=== PATIENT | male | born 1935 | race Caucasian/White ===

== ENCOUNTER 2022-09-06 14:18 | Observation (INO) | payer OTHER, SELFPAY ==
[2022-09-06] VITALS (10 sets, daily range): BP systolic 114–160; BP diastolic 63–119; PULSE 90–106; RESP 14–27; TEMP 37.1–37.5; O2SAT 93–98
--- NOTE | ~2022-09-06 | XR_ITS ---
EXAMINATION: XR chest 2V Exam Date/Time: 09/06/2022 14:52 COMBAT SYSTEMS OPERATOR HISTORY: weakness and cough Comparison: 11/19/2013. RESULT: Lines, tubes, and devices: None. Lungs and pleura: Low lung volumes. Patchy ill-defined airspace disease bilaterally. No large effusi on. Cardiomediastinal silhouette: Stable. Other: No acute osseous or upper abdominal finding. IMPRESSION: Pulmonary opacities may reflect edema or pneumonia. Reviewed, dictated and finalized at location K. AT SYSTEMS OPERATOR
--- NOTE | ~2022-09-06 | US_ITS ---
EXAMINATION: US abdomen limited DATE: 09/07/2022 16:44 INDICATION: Transaminitis TECHNIQUE: Multiple grayscale and Doppler ultrasound images of limited portions of the abdomen were o btained. COMPARISON: 07/15/2005. FINDINGS: The pancreas was obscured by bowel gas. Hyperechoic 1.7 cm right posterior liver lobe lesio n, likely hemangioma. The liver is otherwise normal with normal echogenicity and echotexture. No surf [place] nodularity. Normal hepatopetal flow in the main portal vein. The gallbladder is surgically absent The common bile duct measures 4 mm. There was no sonographic Velazquez sign. IMPRESSION: Pancreas not visualized. Status post cholecystectomy. Otherwise normal abdominal ultrasound findings. Reviewed, dictated and finalized at location K. CORE DEVELOPER IMPRESSION: Pancreas not visualized. Status post cholecystectomy. Otherwise normal abdomina l ultrasound findings.
--- NOTE | ~2022-09-06 | US_ITS ---
EXAMINATION: US venous doppler [facility] DATE: 09/07/2022 16:44 INDICATION: Lower limb swelling TECHNIQUE: Grayscale ultrasound images without and with compression and Doppler ultrasound images of the bilateral lower extremity veins were obtained. COMPARISON: None. FINDINGS: The visualized portions of right common femoral vein, profunda (deep) femoral vein, femoral vein, pop liteal vein, posterior tibial veins, peroneal veins, gastrocnemius vein and greater saphenous vein ou tflow are patent. The visualized portions of left common femoral vein, profunda femoral vein, femoral vein, popliteal v ein, posterior tibial veins, peroneal veins, gastrocnemius vein and greater saphenous vein outflow ar e patent. IMPRESSION: 1. No deep venous thrombosis in either lower limb. Reviewed, dictated and finalized at location A. S OR MIRROR INSPECTOR
--- NOTE | 2022-09-06 14:31 | ECG_ITS ---
Measurements Intervals [place] Rate: 92 P: FL: 0 QRS: -32 QRSD: 98 T: 11 QT: 344 QTc: 426 Interpretive Statements ATRIAL FIBRILLATION BASELINE ARTIFACT LEFT AXIS DEVIATION MINIMAL ST DEPRESSION ABNORMAL ECG NO PREVIOUS ECG AVAILABLE FOR COMPARISON Electronically Signed On 09-06-2022 17:07:14 COFFEE SHOP AIDE by Marcial Long M.D.
--- NOTE | 2022-09-06 14:45 | ED.WEAKNESS ---
HPI - Weakness General Chief complaint: Weakness Stated complaint: weakness/confusion Time Seen by Provider: 09/06/22 14:37 History of Present Illness HPI Narrative: Pt presents with generalized weakness and cough. Pt went to bed at 0300 and could not get out of bed this morning due to feeling too weak. Pt says he laid in bed until someone found him. Pt denies fever or dysuria. Pt denies pain. Pt not aware of history of a fib. Related Data Home Medications Medication Instructions Recorded Confirmed ascorbic acid (vitamin C) 500 mg 500 mg PO DAILY 11/27/19 07/16/22 tablet,extended release flaxseed oil 1,000 mg capsule 1,000 mg PO DAILY 11/27/19 07/16/22 vitamin B complex 1 tablet PO DAILY 11/27/19 07/16/22 zinc 50 mg tablet (Chelated Zinc) 50 mg PO DAILY 11/27/19 07/16/22 coenzyme [id number] E 100 mg-100 cap PO DAILY 06/23/20 07/16/22 unit capsule Allergies Allergy/AdvReac Type Severity Reaction Status Date / Time No Known Allergies Allergy Mild Verified 07/16/22 10:42 Review of Systems Review of Systems: All systems reviewed & are unremarkable except as noted in HPI and below PMFSH Past Medical History Medical History Gonarthrosis Hypertrophy of prostate without urinary obstruction 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 Family History Family History Sibling Patient's brother is in good health Mother Patient's mother is Father Patient's father is Social History Social History (Updated 07/16/22 @ 10:48 by Michelle Mullen MA) Smoking packs per day: 0.5 Smoking cigarettes per day: 10.0 Years smoked: 1.2 Smoking pack-years: 0.60 Smoking status: Former smoker Second hand tobacco smoke exposure: Yes Smoking end date: 01/26/1967 Alcohol intake: never Substance use: never Substance use type: does not use Lack of Transportation: No Lack of Food: Never True Current Housing: I Have Housing Concerned About Future Housing: No Difficulty Paying Gas/Electric Bills: No Difficulty Paying for Meds: No Currently Unemployed: No Education: High School Diploma/GED Difficulty w/ Childcare or Family Care: No Exam Const: General: healthy appearing Nutritional Appearance: well nourished Orientation/consciousness: patient oriented x3 Limitations: no limitations Eyes: EOM: EOMs intact bilaterally Neck: Neck: normal visual inspection and no lymphadenopathy Resp: Effort & Inspection: normal respiratory effort Auscultation: crackles Cardio: Rate: regular rate Rhythm: regular rhythm GI: GI Palp: Yes Soft to palpation and No Tenderness to palpation present (GI) Auscultation: normal bowel sounds Skin: General skin exam: normal color Rashes: no rashes Neuro: General: patient oriented x3, moves all extremities, no meningeal signs and no focal motor deficits Speech: normal speech Extrem: General: normal to inspection and no clubbing, cyanosis or edema Psych: Mental Status: mental status grossly normal Affect: normal affect Attitude: cooperative Course Vital Signs Vital signs: Vital Signs Respiratory Rate 18 09/06/22 14:24 Blood Pressure 155/89 H 09/06/22 14:24 Pulse Oximetry 98 09/06/22 14:24 Pulse Rate 96 09/06/22 17:01 Respiratory Rate 24 H 09/06/22 17:01 Blood Pressure 160/81 H 09/06/22 17:01 Pulse Oximetry 96 09/06/22 17:01 Oxygen Delivery Room Air 09/06/22 15:30 MDM - Weakness MDM Narrative Medical decision making narrative: pt generally weak and unable to get out of bed, will work up for cardiac and sepsis as well as swab for flu/covid. Pt in new onset a fib and has influenza a, given his profound weakness will need to admit. d/w pernell huddleston agrees to admit Lab Data 09/06/22 15:04 09/06/22 15:04 Labs: Lab Results 09/06/2209/06
[2022-09-06 15:14] LABS: Basophils Percent Auto 0.1 % (0.2-1.2); Hematocrit 41.3 % (42.0-52.0); Hemoglobin 14.2 g/dL (14.0-18.0); Immature Granulocyte Absolute 0.05 K/mm3 (0.00-0.031); Immature Granulocyte Percent A 0.5 % (0-0.5); Lymphocytes Absolute Auto 1.01 K/mm3 (0.9-3.2); Lymphocytes Percent Auto 9.9 % (18.3-44.2); Mean Corpuscular HGB Conc 34.4 g/dl (32-36); Mean Corpuscular Hemoglobin 34.6 pg (26-34); Mean Corpuscular Volume 100.7 fl (80-100); Mean Platelet Volume 10.8 fl (7.4-10.4); Monocytes Absolute Auto 1.4 K/mm3 (0.1-0.6); Monocytes Percent Auto 14.1 % (2.6-8.5); Neutrophils Absolute Auto 7.7 K/mm3 (1.3-6.7); Neutrophils Percent Auto 75.4 % (45.5-73.1); Platelet Count Result 160 k/mm3 (150-375); Red Cell Distribution Width 13.6 % (11.5-14.5); White Blood Count 10.2 K/mm3 (4.5-10.0)
--- NOTE | 2022-09-06 15:29 | PC.NURSE ---
Vincent Blackburn for contact: [phone]
[2022-09-06 15:50] LABS: Influenza A QL RT-PCR Positive (Negative); Influenza B QL RT-PCR Negative (Negative); SARS-CoV-2 RNA PCR Negative
[2022-09-06 16:51] LABS: Appearance Urine Slightly Cloudy (Clear); Bilirubin Urine Negative (Negative); Blood Urine 2+ (Negative); Glucose Urine UA Negative (Negative); Ketones Urine 1+ mg/dL (Negative); Leukocyte Esterase Ur Negative LEU/UL (Negative); Nitrate Urine Negative (Negative); Protein Urine 2+ mg/dL (Negative); Specific Grav Ur 1.025 (1.001-1.035); Urobilinogen Urine 0.2 mg/dL (<2.0)
[2022-09-06 16:56] LABS: Add Urine Microscopic? YES; Color Urine Yellow (Yellow)
[2022-09-06 17:01] LABS: Mucus Urine Rare /lpf; Squamous Epithelial Cell Urine Rare /hpf (Few); WBC Urine 0-3 /hpf
[2022-09-06 17:04] LABS: Alanine Aminotransferase 52 U/L (6-50); Albumin Level 3.9 g/dL (3.5-5.1); Alkaline Phosphatase 66 U/L (38-126); Anion Gap 8 mmol/L (8-16); Aspartate Amino Transferase 176 U/L (17-59); Bilirubin,Total 0.7 mg/dL (0.2-1.3); Blood Urea Nitrogen 34 mg/dL (9-20); Calcium 8.6 mg/dL (8.4-10.2); Carbon Dioxide 27 mmol/L (22-30); Chloride 105 mmol/L (98-107); Estimated CRCL calculation 38 ml/min; Estimated Glomerular Filt Rate 57; Glucose 121 mg/dL (65-110); Potassium 4.1 mmol/L (3.4-5.0); Sodium 140 mmol/L (137-145)
--- NOTE | 2022-09-06 18:45 | PM.IMHP ---
H&P: HPI History of Present Illness Date/Time: 09/06/22 18:45 Chief Complaint: Weakness. Narrative: This is a pleasant 86-year-old male with hypertension, hypothyroidism, bipolar disorder, and benign prostatic hyperplasia who presented to the emergency department via EMS from home for evaluation of weakness. He says he felt just fine yesterday and had [employer] for dinner. As the evening progressed he started to feel very weak and at about 03:00 ?I felt like something shut my body down.? He finally fell asleep however when he tried to get out of bed this afternoon he was unable to do so due to profound weakness. With further questioning he endorses generalized myalgias and arthralgias, subjective fever, chills, and nonproductive cough. He lives alone he has no known sick contacts. He denies fever, headache, neck ache, sore throat, chest and pleuritic pain, palpitations, vomiting, diarrhea, and dysuria. He also denies focal weakness, paresthesias, difficulties speaking and swallowing, facial droop, auditory visual changes, and vertigo. He tested positive for influenza A in the ED and chest x-ray showed pulmonary opacities which may reflect edema or pneumonia. His vital signs have been stable though he is in atrial fibrillation which is a new diagnosis for the patient (he has no symptoms of such). He is being admitted in this setting for supportive care. Review of Systems Review of Systems: Twelve systems were reviewed and are negative except for as per HPI. [facility] Past Medical History Medical History (Updated 09/06/22 @ 23:11 by Itzel Matthews PA-C) Arthritis Benign prostatic hyperplasia Bipolar disorder Depression Hypothyroidism Obstructive sleep apnea Surgical History Surgical History (Updated 09/06/22 @ 23:04 by Itzel Matthews PA-C) History of cataract extraction with lens replacement History of cholecystectomy Status post transposition of nerve Family History Family History Sibling Patient's brother is in good health Mother Patient's mother is Father Patient's father is Social History Social History (Updated 09/06/22 @ 23:05 by Itzel Matthews PA-C) Social History: Surrogate medical decision maker: Bere Cornejoda, daughter. Code status: Full code. Smoking packs per day: 0.5 Smoking cigarettes per day: 10.0 Years smoked: 1.2 Smoking pack-years: 0.60 Smoking status: Never smoker Second hand tobacco smoke exposure: Yes Smoking end date: 01/26/1967 Alcohol intake: never Substance use: never Substance use type: does not use Lack of Transportation: No Lack of Food: Never True Current Housing: I Have Housing Concerned About Future Housing: No Difficulty Paying Gas/Electric Bills: No Difficulty Paying for Meds: No Currently Unemployed: No Education: High School Diploma/GED Difficulty w/ Childcare or Family Care: No Additional living arrangements comments: The patient lives in his own home in [place]. Additional occupation/education comments: Retired. Spiritual care concerns: No Meds Home Medications and Allergies Home Medications Medication Instructions Recorded Confirmed Type ascorbic acid (vitamin C) 500 mg 500 mg PO DAILY 11/27/19 09/06/22 History tablet,extended release flaxseed oil 1,000 mg capsule 1,000 mg PO DAILY 11/27/19 09/06/22 History vitamin B complex 1 tablet PO DAILY 11/27/19 09/06/22 History zinc 50 mg tablet (Chelated Zinc) 50 mg PO DAILY 11/27/19 09/06/22 History coenzyme [id number] E 100 mg-100 1 cap PO DAILY 06/23/20 09/06/22 History unit capsule Synthroid 100 mcg tablet 100 mcg PO DAILY #90 tabs 07/06/22 09/06/22 Rx (levothyroxine) Depakote 500 mg tablet,delayed 500 mg PO BID #180 tabs 07/16/22 09/06/22 Rx release (divalproex) doxazosin 1 mg tablet 1 mg PO DAILY #90 tabs 07/16/22 09/06/22 Rx Allergies [place]
--- NOTE | 2022-09-06 20:27 | ADMGEN ---
This patient, Alberto Pérez, was admitted to Medical Room 255-01. Patient/family oriented to hospital policies and general routines including ID bracelet, bed and alarms, visiting hours, pain management, procedures, bathroom and other care routines, personal items, smoking policy, room service/diet, and visiting hours. Information on how to activate the Rapid Response Team has been discussed. Patient/Family are encouraged to report perceived risks to care and to ask questions if they do not understand what they are told or what they should do.
[2022-09-06] MEDS: guaiFENesin 12 HR 600 MG TABCR PO (23:46)
[2022-09-06] MEDS: FUROSEMIDE INJ 40 MG/4 ML VIAL 20 MG IV PUSH (23:47)
[2022-09-06] MEDS: OSELTAMIVIR PHOSPHATE ORAL SUSP 30 MG/5 ML SYRINGE PO (23:48)
[2022-09-06] MEDS: ENOXAPARIN 100 MG/ML SYRINGE 86 MG SUB-Q (23:48)
[2022-09-07] VITALS (9 sets, daily range): BP systolic 140–148; BP diastolic 57–85; PULSE 86–115; RESP 16–24; TEMP 36.1–36.3; O2SAT 93–97
--- NOTE | 2022-09-07 06:02 | PCRCNOTE ---
Patient refused use of hospital cpap stating he does not use one at home. Patient seemed slightly confused. [place] ordered later, RT to instruct pt, pt was sleeping. Day shift RT to instruct.
[2022-09-07 06:03] LABS: Hematocrit 38.3 % (42.0-52.0); Hemoglobin 12.8 g/dL (14.0-18.0); Mean Corpuscular HGB Conc 33.4 g/dl (32-36); Mean Corpuscular Hemoglobin 33.4 pg (26-34); Mean Platelet Volume 10.8 fl (7.4-10.4); Platelet Count Result 161 k/mm3 (150-375); Red Blood Count 3.83 M/mm3 (4.6-6.20); Red Cell Distribution Width 13.8 % (11.5-14.5); White Blood Count 14.4 K/mm3 (4.5-10.0)
[2022-09-07] MEDS: LEVOTHYROXINE SODIUM 100 MCG TABLET PO (06:10)
[2022-09-07 06:21] LABS: Alanine Aminotransferase 66 U/L (6-50); Albumin Level 3.5 g/dL (3.5-5.1); Alkaline Phosphatase 54 U/L (38-126); Anion Gap 5 mmol/L (8-16); Aspartate Amino Transferase 210 U/L (17-59); Bilirubin,Total 0.5 mg/dL (0.2-1.3); Blood Urea Nitrogen 34 mg/dL (9-20); Calcium 7.9 mg/dL (8.4-10.2); Carbon Dioxide 29 mmol/L (22-30); Chloride 99 mmol/L (98-107); Estimated CRCL calculation 41 ml/min; Estimated Glomerular Filt Rate > 60; Glucose 125 mg/dL (65-110); Potassium 3.8 mmol/L (3.4-5.0); Sodium 133 mmol/L (137-145)
[2022-09-07 06:57] LABS: Hepatitis B Surface Antigen Negative (Negative)
[2022-09-07 07:02] LABS: HAV RESULT Negative (Negative); Hepatitis B Core IgM Result Negative (Negative)
[2022-09-07 07:14] LABS: Hepatitis C Virus Antibody Negative (Negative)
[2022-09-07 07:32] LABS: CRP 18.7 mg/dL (<1.0)
--- NOTE | 2022-09-07 07:34 | P.PNIM_ITS ---
Progress Note: A&P Assessment and Plan (1) Influenza A: Code(s): J10.1 - Influenza due to other identified influenza virus with other respiratory manifestations Status: Acute Assessment and Plan: Patient presents to the ED on 09/06/22 due to increased weakness. Patient found to be influenza positive in the ED. * Supportive care. * He has been started on Tamiflu for total of 5 days * Fall precautions * Patient not requiring any oxygen supplementation. O2 saturation 98 on room air. (2) Generalized weakness: Code(s): R53.1 - Weakness Status: Acute Assessment and Plan: Presents to the ED with generalized weakness. * Related to above. * Initiate fall precautions. * PT/OT consulted. * TSH within normal limits * CRP 18.7, continue to trend * Urine negative for wbc's, leukocyte Estrace, and nitrates * B12 and folate pending * Vitamin-D pending (3) New onset atrial fibrillation: Code(s): I48.91 - Unspecified atrial fibrillation Status: Acute Assessment and Plan: Patient found to have AFib in the ED * Patient is asymptomatic and has no known history of AFib. * Check TSH and echocardiogram. * Lovenox 1 milligram/kilogram bid. * Echocardiogram ordered * Telemetry (4) Pulmonary infiltrates: Code(s): R91.8 - Other nonspecific abnormal finding of lung field Status: Acute Assessment and Plan: Chest x-ray revealed pulmonary opacities that may reflect edema or pneumonia * Empiric azithromycin and ceftriaxone for possible bacterial pneumonia. * Sputum culture collected. * Check urinary antigens. * Procalcitonin ordered (5) Transaminitis: Code(s): R74.01 - Elevation of levels of liver transaminase levels Status: Acute Assessment and Plan: Abnormal finding on labs * Hepatitis panel negative * Right upper quadrant ultrasound pending * Patient is on Depakote which could be contributing to LFT elevation (6) Hypothyroidism: Code(s): E03.9 - Hypothyroidism, unspecified Status: Chronic Assessment and Plan: Chronic * TSH within normal limits (7) Bipolar disorder: Code(s): F31.9 - Bipolar disorder, unspecified Status: Chronic Assessment and Plan: Chronic * Continue Depakote. (8) Benign prostatic hyperplasia: Code(s): N40.0 - Benign prostatic hyperplasia without lower urinary tract symptoms Status: Chronic Assessment and Plan: Chronic * Continue doxazosin. P.r.n. bladder scan to rule out urinary retention. (9) Obstructive sleep apnea: Code(s): G47.33 - Obstructive sleep apnea (adult) (pediatric) Status: Chronic Assessment and Plan: Chronic * CPAP will be provided for the patient to use while hospitalized. Time Spent With Patient Time with patient: Greater than 35 minutes Subjective Date/time seen: 09/07/22 07:34 Interval history: 86-year-old male with history of hypertension, hypothyroidism, bipolar disorder and BPH presented to the ED on 09/06/2022 with chief complaint of weakness. Patient was found be influenza A positive. Patient states that weakness started on the day of ED arrival and also has symptoms of cough and congestion. Patient denies chest pain, shortness a breath, nausea, vomiting, fever and lower extremity swelling. Patient does have auditory coarse breath sounds when being interviewed. Review of Systems Review of Systems:
--- NOTE | 2022-09-07 07:34 | PM.IMPN ---
Progress Note: A&P Assessment and Plan (1) Influenza A: Code(s): J10.1 - Influenza due to other identified influenza virus with other respiratory manifestations Status: Acute Assessment and Plan: Patient presents to the ED on 09/06/22 due to increased weakness. Patient found to be influenza positive in the ED. Supportive care. He has been started on Tamiflu for total of 5 days Fall precautions Patient not requiring any oxygen supplementation. O2 saturation 98 on room air. (2) Generalized weakness: Code(s): R53.1 - Weakness Status: Acute Assessment and Plan: Presents to the ED with generalized weakness. Related to above. Initiate fall precautions. PT/OT consulted. TSH within normal limits CRP 18.7, continue to trend Urine negative for wbc's, leukocyte Estrace, and nitrates B12 and folate pending Vitamin-D pending (3) New onset atrial fibrillation: Code(s): I48.91 - Unspecified atrial fibrillation Status: Acute Assessment and Plan: Patient found to have AFib in the ED Patient is asymptomatic and has no known history of AFib. Check TSH and echocardiogram. Lovenox 1 milligram/kilogram bid. Echocardiogram ordered Telemetry (4) Pulmonary infiltrates: Code(s): R91.8 - Other nonspecific abnormal finding of lung field Status: Acute Assessment and Plan: Chest x-ray revealed pulmonary opacities that may reflect edema or pneumonia Empiric azithromycin and ceftriaxone for possible bacterial pneumonia. Sputum culture collected. Check urinary antigens. Procalcitonin ordered (5) Transaminitis: Code(s): R74.01 - Elevation of levels of liver transaminase levels Status: Acute Assessment and Plan: Abnormal finding on labs Hepatitis panel negative Right upper quadrant ultrasound pending Patient is on Depakote which could be contributing to LFT elevation (6) Hypothyroidism: Code(s): E03.9 - Hypothyroidism, unspecified Status: Chronic Assessment and Plan: Chronic TSH within normal limits (7) Bipolar disorder: Code(s): F31.9 - Bipolar disorder, unspecified Status: Chronic Assessment and Plan: Chronic Continue Depakote. (8) Benign prostatic hyperplasia: Code(s): N40.0 - Benign prostatic hyperplasia without lower urinary tract symptoms Status: Chronic Assessment and Plan: Chronic Continue doxazosin. P.r.n. bladder scan to rule out urinary retention. (9) Obstructive sleep apnea: Code(s): G47.33 - Obstructive sleep apnea (adult) (pediatric) Status: Chronic Assessment and Plan: Chronic CPAP will be provided for the patient to use while hospitalized. Time Spent With Patient Time with patient: Greater than 35 minutes Subjective Date/time seen: 09/07/22 07:34 Interval history: 86-year-old male with history of hypertension, hypothyroidism, bipolar disorder and BPH presented to the ED on 09/06/2022 with chief complaint of weakness. Patient was found be influenza A positive. Patient states that weakness started on the day of ED arrival and also has symptoms of cough and congestion. Patient denies chest pain, shortness a breath, nausea, vomiting, fever and lower extremity swelling. Patient does have auditory coarse breath sounds when being interviewed. Review of Systems Review of Systems: All systems reviewed & are unremarkable except as noted in HPI and below Exam Narrative: GENERAL: Comfortable, no acute distress HENMT: moist mucous membranes EYES: EOM intact b/l NECK: no lymphadenopathy RESPIRATORY: Mild coarse breath sounds; I believe that most of the harsh breathing noises the patient is making is due to lack of mucus clearing in the upper airways. CARDIO: Irregular rhythm, consistent with new atrial fibrillation diagnosis GI: soft, nontender, bowel sounds present SKIN: no rashes
[2022-09-07 08:20] LABS: Procalcitonin 0.9 ng/mL
[2022-09-07 08:22] LABS: Vitamin D 25 Hydroxy 48.3 ng/mL
[2022-09-07] MEDS: ZINC SULFATE 220 MG CAPSULE PO (08:48)
[2022-09-07] MEDS: VITAMIN B COMPLEX CAPSULE 1 CAP PO (08:49)
[2022-09-07] MEDS: DIVALPROEX SODIUM DR 250 MG TABEC 500 MG PO ×2 (08:49→16:11)
[2022-09-07] MEDS: DOXAZOSIN MESYLATE 1 MG TABLET PO (08:49)
[2022-09-07] MEDS: guaiFENesin 12 HR 600 MG TABCR PO ×2 (08:49→20:26)
[2022-09-07] MEDS: ASCORBIC ACID 500 MG TABLET PO (08:49)
[2022-09-07] MEDS: ENOXAPARIN 100 MG/ML SYRINGE 86 MG SUB-Q ×2 (08:49→20:26)
[2022-09-07] MEDS: OSELTAMIVIR PHOSPHATE ORAL SUSP 30 MG/5 ML SYRINGE PO ×2 (08:51→20:26)
[2022-09-07 09:10] LABS: Folic Acid > 20.0 ng/mL (2.76->20); Vitamin B12 > 1000.0 pg/mL (239-931)
[2022-09-07] MEDS: PERFLUTREN LIPID MICROSPHERES 1.5 ML VIAL DILUTED TO 10 ML TOTAL VOLUME IV PUSH (16:56)
--- NOTE | 2022-09-07 16:57 | IVDEFINITY ---
Prior to administration of IV Definity the patient was educated on the risks and benefits of the imaging enhancing agent including potential adverse side effects. The patient verbalized understanding. Allergies were verified. No exclusion criteria were identified and at least one of the following inclusion criteria were met: 1) physician request, 2) patient technically difficult to image (per the [place] [employer] Echocardiography guidelines of two or more segments not discernable within the apical view), or 3) questionable left ventricular function. ?
--- NOTE | 2022-09-07 23:12 | ECHO_ITS ---
Patient Info Name: Alberto Pérez Age: 86 years : 1935 Gender: Male Ht: 68 in Wt: 190 lbs BSA: 2.05 m2 HR: 97 bpm BP: 147 / 79 mmHg Heart Rhythm: Atrial Fibrillation Technical Quality: Fair Exam Date: 09/07/2022 4:24 PM Exam Location: [facility] Patient Status: Outpatient Admit Date: 09/06/2022 Staff Ordering Physician: Itzel Matthews PA-C Vice President Business Development: Madison Morales RDCS Attending Provider: Kobe Reeves MD Referring Physician: Byron ARCINIEGA; Exam Type: CA echo dop color flow w con Study Info Indications - new onset afib Complete two-dimensional, color flow and Doppler transthoracic echocardiogram is performed with contrast to opacify the left ventricle and to improve the deliniation of the left ventricle endocardial borders. Contrast/Agitated Saline Contrast/Ag. Saline: Definity Amount: 3.00 ml Administered By: Madison Morales RDCS Existing IV Access: Yes IV Access Condition: patent with no signs of infiltration Summary 1. Left ventricular chamber dimension is normal. 2. Left ventricular systolic function is hyperdynamic, estimated at >70%. 3. There is mildly increased left ventricular wall thickness. 4. The left ventricular diastolic function is indeterminate. 5. Right ventricular chamber dimension is moderately enlarged. 6. Right ventricular systolic function is mildly reduced. TAPSE 1.6. 7. Right atrial chamber dimension is moderate to severely enlarged. 8. There is trace mitral valve regurgitation. 9. There is mild tricuspid valve regurgitation. 10. Moderate pulmonary hypertension, estimated pulmonary arterial systolic pressure is 46 mmHg. Left Ventricle Left ventricular chamber dimension is normal. Left ventricular systolic function is hyperdynamic, estimated at >70%. There is mildly increased left ventricular wall thickness. The left ventricular diastolic function is indeterminate. Right Ventricle Right ventricular chamber dimension is moderately enlarged. Right ventricular systolic function is mildly reduced. TAPSE 1.6. Left Atria Left atrial chamber dimension is mildly enlarged. Right Atria Right atrial chamber dimension is moderate to severely enlarged. Aortic Valve The aortic valve is trileaflet. There is mild aortic valve sclerosis. There is no aortic valve stenosis. There is no aortic valve regurgitation. Pulmonic Valve The pulmonic valve is not well visualized. Mitral Valve The mitral valve has normal leaflets. There is trace mitral valve regurgitation. The mitral valve annulus is mildly calcified. Tricuspid Valve The tricuspid valve leaflets are normal. There is mild tricuspid valve regurgitation. Moderate pulmonary hypertension, estimated pulmonary arterial systolic pressure is 46 mmHg. Pericardium/Pleural The pericardium appears normal. There is small pericardial effusion. Inferior Vena Cava Normal inferior vena cava with >50% collapse upon inspiration consistent with normal right atrial pressure, 5 mmHg. Aorta The aortic root size at the sinus of Valsalva is normal. Left Ventricular Outflow Tract Name Value Normal LVOT 2D LVOT Diameter 2.0
[2022-09-08] VITALS (9 sets, daily range): BP systolic 131–139; BP diastolic 65–68; PULSE 84–109; RESP 18–20; TEMP 36.2–36.9; O2SAT 94–98
[2022-09-08] MEDS: LEVOTHYROXINE SODIUM 100 MCG TABLET PO (05:55)
[2022-09-08 05:56] LABS: Hematocrit 36.6 % (42.0-52.0); Hemoglobin 12.5 g/dL (14.0-18.0); Mean Corpuscular HGB Conc 34.2 g/dl (32-36); Mean Corpuscular Hemoglobin 33.6 pg (26-34); Mean Corpuscular Volume 98.4 fl (80-100); Mean Platelet Volume 10.5 fl (7.4-10.4); Platelet Count Result 162 k/mm3 (150-375); Red Blood Count 3.72 M/mm3 (4.6-6.20); Red Cell Distribution Width 13.6 % (11.5-14.5)
[2022-09-08 06:32] LABS: Alanine Aminotransferase 89 U/L (6-50); Albumin Level 3.3 g/dL (3.5-5.1); Alkaline Phosphatase 55 U/L (38-126); Anion Gap 3 mmol/L (8-16); Aspartate Amino Transferase 215 U/L (17-59); Bilirubin,Total 0.4 mg/dL (0.2-1.3); Blood Urea Nitrogen 29 mg/dL (9-20); CRP 15.3 mg/dL (<1.0); Carbon Dioxide 31 mmol/L (22-30); Chloride 100 mmol/L (98-107); Estimated CRCL calculation 60 ml/min; Estimated Glomerular Filt Rate > 60; Glucose 87 mg/dL (65-110); Potassium 3.6 mmol/L (3.4-5.0); Sodium 134 mmol/L (137-145)
[2022-09-08] MEDS: OSELTAMIVIR PHOSPHATE ORAL SUSP 30 MG/5 ML SYRINGE PO (08:50)
[2022-09-08] MEDS: ENOXAPARIN 100 MG/ML SYRINGE 86 MG SUB-Q ×2 (08:50→20:27)
[2022-09-08] MEDS: ZINC SULFATE 220 MG CAPSULE PO (08:51)
[2022-09-08] MEDS: guaiFENesin 12 HR 600 MG TABCR PO ×2 (08:51→20:27)
[2022-09-08] MEDS: VITAMIN B COMPLEX CAPSULE 1 CAP PO (08:51)
[2022-09-08] MEDS: DOXAZOSIN MESYLATE 1 MG TABLET PO (08:51)
[2022-09-08] MEDS: DIVALPROEX SODIUM DR 250 MG TABEC 500 MG PO ×2 (08:51→16:46)
[2022-09-08] MEDS: ASCORBIC ACID 500 MG TABLET PO (08:51)
--- NOTE | 2022-09-08 16:29 | P.PNIM_ITS ---
Progress Note: A&P Assessment and Plan (1) Influenza A: Code(s): J10.1 - Influenza due to other identified influenza virus with other respiratory manifestations Status: Acute Assessment and Plan: Patient presents to the ED on 09/06/22 due to increased weakness. Patient found to be influenza positive in the ED. * Continue supportive care. * Continue Tamiflu x5 days started 09/06/22, day 3 of 5 * Fall precautions * Patient not requiring any oxygen supplementation. O2 saturation stable on room air. (2) Generalized weakness: Code(s): R53.1 - Weakness Status: Acute Assessment and Plan: Presents to the ED with generalized weakness. * Secondary to influenza. * Continue fall precautions. * PT/OT consulted. * TSH within normal limits * CRP 18.7, continue to trend * Urine negative for wbc's, leukocyte Estrace, and nitrates * B12 and folate within normal limits * Vitamin-D within normal limits. (3) Pneumonia: Code(s): J18.9 - Pneumonia, unspecified organism Status: Acute Assessment and Plan: Chest x-ray revealed pulmonary opacities that may reflect edema or pneumonia. Patient reports sputum color and consistency changes. * continue empiric azithromycin and ceftriaxone, started 09/06, antibiotic day 3, transition to oral antibiotics in am if still afebrile. * Sputum culture ordered, but uncollected at this time. .? * Legionella and pneumococcal urine antigen ordered. mycoplasma antibody titer pending.? * Procalcitonin 0.9 suggestive of bacterial infection. (4) New onset atrial fibrillation: Code(s): I48.91 - Unspecified atrial fibrillation Status: Acute Assessment and Plan: Patient found to have AFib in the ED, rate controlled * Patient is asymptomatic and has no known history of AFib. * TSH within normal limits * echocardiogram - with enlarged RA/RV and mildly reduced RV systolic function, moderate pulmonary hypertension * Continue lovenox 1 mg/kg per renal function. * Discussed with the patient and daughter regarding anticoagulation risks and benefits. * [id number] score 4 high risk stroke; HAS-BLED score 1 low risk major bleeding * Monitor telemetry (5) Transaminitis: Code(s): R74.01 - Elevation of levels of liver transaminase levels Status: Acute Assessment and Plan: Abnormal finding on labs * Hepatitis panel negative * Right upper quadrant ultrasound with normal liver * Patient is on Depakote which could be contributing to LFT elevation * Elevated LFTs likely secondary to acute vial disease. * Trend LFTs. (6) Hypothyroidism: Qualifiers: Hypothyroidism type: acquired Qualified Code(s): E03.9 - Hypothyroidism, unspecified Code(s): E03.9 - Hypothyroidism, unspecified Status: Chronic Assessment and Plan: Chronic * TSH within normal limits * continue levothyroxine at home dose (7) Bipolar disorder: Qualifiers: Active/Remission status: remission status unspecified Qualified Code(s): F31.9 - Bipolar disorder, unspecified Code(s): F31.9 - Bipolar disorder, unspecified Status: Chronic Assessment and Plan: Chronic, stable. * Continue Depakote. (8) Benign prostatic hyperplasia: Qualifiers: Lower urinary tract symptom presence: symptoms absent Qualified Code(s): N40.0 - Benign prostatic hyperplasia without lower urinary tract symptoms Code(s): N40.0 - Benign prostatic hyperplasia without lower urinary tract sympto
--- NOTE | 2022-09-08 16:29 | PM.IMPN ---
Progress Note: A&P Assessment and Plan (1) Influenza A: Code(s): J10.1 - Influenza due to other identified influenza virus with other respiratory manifestations Status: Acute Assessment and Plan: Patient presents to the ED on 09/06/22 due to increased weakness. Patient found to be influenza positive in the ED. Continue supportive care. Continue Tamiflu x5 days started 09/06/22, day 3 of 5 Fall precautions Patient not requiring any oxygen supplementation. O2 saturation stable on room air. (2) Generalized weakness: Code(s): R53.1 - Weakness Status: Acute Assessment and Plan: Presents to the ED with generalized weakness. Secondary to influenza. Continue fall precautions. PT/OT consulted. TSH within normal limits CRP 18.7, continue to trend Urine negative for wbc's, leukocyte Estrace, and nitrates B12 and folate within normal limits Vitamin-D within normal limits. (3) Pneumonia: Code(s): J18.9 - Pneumonia, unspecified organism Status: Acute Assessment and Plan: Chest x-ray revealed pulmonary opacities that may reflect edema or pneumonia. Patient reports sputum color and consistency changes. continue empiric azithromycin and ceftriaxone, started 09/06, antibiotic day 3, transition to oral antibiotics in am if still afebrile. Sputum culture ordered, but uncollected at this time. .? Legionella and pneumococcal urine antigen ordered. mycoplasma antibody titer pending.? Procalcitonin 0.9 suggestive of bacterial infection. (4) New onset atrial fibrillation: Code(s): I48.91 - Unspecified atrial fibrillation Status: Acute Assessment and Plan: Patient found to have AFib in the ED, rate controlled Patient is asymptomatic and has no known history of AFib. TSH within normal limits echocardiogram - with enlarged RA/RV and mildly reduced RV systolic function, moderate pulmonary hypertension Continue lovenox 1 mg/kg per renal function. Discussed with the patient and daughter regarding anticoagulation risks and benefits. [id number] score 4 high risk stroke; HAS-BLED score 1 low risk major bleeding Monitor telemetry (5) Transaminitis: Code(s): R74.01 - Elevation of levels of liver transaminase levels Status: Acute Assessment and Plan: Abnormal finding on labs Hepatitis panel negative Right upper quadrant ultrasound with normal liver Patient is on Depakote which could be contributing to LFT elevation Elevated LFTs likely secondary to acute vial disease. Trend LFTs. (6) Hypothyroidism: Qualifiers: Hypothyroidism type: acquired Qualified Code(s): E03.9 - Hypothyroidism, unspecified Code(s): E03.9 - Hypothyroidism, unspecified Status: Chronic Assessment and Plan: Chronic TSH within normal limits continue levothyroxine at home dose (7) Bipolar disorder: Qualifiers: Active/Remission status: remission status unspecified Qualified Code(s): F31.9 - Bipolar disorder, unspecified Code(s): F31.9 - Bipolar disorder, unspecified Status: Chronic Assessment and Plan: Chronic, stable. Continue Depakote. (8) Benign prostatic hyperplasia: Qualifiers: Lower urinary tract symptom presence: symptoms absent Qualified Code(s): N40.0 - Benign prostatic hyperplasia without lower urinary tract symptoms Code(s): N40.0 - Benign prostatic hyperplasia without lower urinary tract symptoms Status: Chronic Assessment and Plan: Chronic Continue doxazosin. P.r.n. bladder scan if lower urinary symptoms. (9) Obstructive sleep apnea: Code(s): G47.33 - Obstructive sleep apnea (adult) (pediatric) Status: Chronic Assessment and Plan: Chronic CPAP while hospitalized. Time Spent With Patient Time: All patient and family questions answered to the best of my ability Time with patient: 15 - 25 mi
[2022-09-08] MEDS: OSELTAMIVIR PHOSPHATE 30 MG CAPSULE PO (20:27)
[2022-09-09] VITALS: PULSE 96
[2022-09-09 04:00] VITALS: PULSE 92
[2022-09-09 05:55] LABS: Basophils Percent Auto 0.3 % (0.2-1.2); Eosinophils Percent Auto 0.1 % (0-4.4); Hematocrit 37.2 % (42.0-52.0); Hemoglobin 12.6 g/dL (14.0-18.0); Immature Granulocyte Absolute 0.07 K/mm3 (0.00-0.031); Lymphocytes Absolute Auto 2.58 K/mm3 (0.9-3.2); Lymphocytes Percent Auto 35.5 % (18.3-44.2); Mean Corpuscular HGB Conc 33.9 g/dl (32-36); Mean Corpuscular Hemoglobin 34.6 pg (26-34); Mean Corpuscular Volume 102.2 fl (80-100); Mean Platelet Volume 10.5 fl (7.4-10.4); Monocytes Absolute Auto 0.4 K/mm3 (0.1-0.6); Monocytes Percent Auto 5.2 % (2.6-8.5); Neutrophils Absolute Auto 4.2 K/mm3 (1.3-6.7); Neutrophils Percent Auto 57.9 % (45.5-73.1); Platelet Count Result 181 k/mm3 (150-375); Red Blood Count 3.64 M/mm3 (4.6-6.20); Red Cell Distribution Width 13.5 % (11.5-14.5); White Blood Count 7.3 K/mm3 (4.5-10.0)
[2022-09-09 06:00] VITALS: BP 115/74; PULSE 96; RESP 18; TEMP 36.6; O2SAT 96
[2022-09-09] MEDS: LEVOTHYROXINE SODIUM 100 MCG TABLET PO (06:02)
[2022-09-09 06:07] LABS: Alanine Aminotransferase 94 U/L (6-50); Albumin Level 3.2 g/dL (3.5-5.1); Alkaline Phosphatase 53 U/L (38-126); Anion Gap 4 mmol/L (8-16); Aspartate Amino Transferase 168 U/L (17-59); Bilirubin,Total 0.4 mg/dL (0.2-1.3); Blood Urea Nitrogen 24 mg/dL (9-20); Calcium 8.2 mg/dL (8.4-10.2); Carbon Dioxide 33 mmol/L (22-30); Chloride 104 mmol/L (98-107); Estimated CRCL calculation 54 ml/min; Estimated Glomerular Filt Rate > 60; Glucose 90 mg/dL (65-110); Sodium 141 mmol/L (137-145)
[2022-09-09 07:36] LABS: Atypical Lymphocytes Present; Platelet Estimate Adequate (Adequate); Schistocytes None Seen (NORMAL)
[2022-09-09] MEDS: DIVALPROEX SODIUM DR 250 MG TABEC 500 MG PO (08:21)
[2022-09-09] MEDS: VITAMIN B COMPLEX CAPSULE 1 CAP PO (08:22)
[2022-09-09] MEDS: guaiFENesin 12 HR 600 MG TABCR PO (08:22)
[2022-09-09] MEDS: DOXAZOSIN MESYLATE 1 MG TABLET PO (08:22)
[2022-09-09] MEDS: ZINC SULFATE 220 MG CAPSULE PO (08:22)
[2022-09-09] MEDS: ENOXAPARIN 100 MG/ML SYRINGE 86 MG SUB-Q (08:22)
[2022-09-09] MEDS: OSELTAMIVIR PHOSPHATE 30 MG CAPSULE PO (08:22)
[2022-09-09] MEDS: ASCORBIC ACID 500 MG TABLET PO (08:22)
[2022-09-09 08:25] VITALS: PULSE 87; O2SAT 91
[2022-09-09 12:00] VITALS: PULSE 96
--- NOTE | 2022-09-09 13:20 | P.DS_ITS ---
DS: Admitting Diagnosis Discharge Date 09/09/2022 1320 Admitting Diagnosis Influenza A Pulmonary infiltrates Transaminitis New onset atrial fibrillation Hypothyroidism Bipolar disorder, chronic Benign prostatic hyperplasia, chronic Obstructive sleep apnea, chronic Generalized weakness DS: Discharge Diagnosis Discharge Diagnosis (1) Influenza A: Code(s): J10.1 - Influenza due to other identified influenza virus with other respiratory manifestations Status: Acute Assessment and Plan: Patient presents to the ED on 09/06/22 due to increased weakness. Patient found to be influenza A positive in the ED. * supportive care given with fluids and PRN acetaminophen * Treated with Tamiflu, renally dosed, x5 days started 09/06/22 and to be continued on discharge until all days completed * Fall precautions * Patient not requiring any oxygen supplementation. O2 saturation stable on room air. (2) Generalized weakness: Code(s): R53.1 - Weakness Status: Acute Assessment and Plan: Presents to the ED with generalized weakness. * Secondary to influenza. * Continue fall precautions. * PT/OT consulted and family requested SNF rehab. * TSH within normal limits * 09/07 CRP 18.7 on admission, repeat CRP 15.3 on 09/08 * Urine negative for wbc's, leukocyte Estrace, and nitrates * B12 and folate within normal limits * Vitamin-D within normal limits. (3) Pneumonia: Code(s): J18.9 - Pneumonia, unspecified organism Status: Acute Assessment and Plan: Chest x-ray revealed pulmonary opacities that may reflect edema or pneumonia. Patient reports sputum color and consistency changes. * Treated with empiric azithromycin and ceftriaxone, started 09/06-09/09. He received 3 doses azithromycin 500 mg daily, 3 doses Rocephin 1 gram IV and then transitioned to oral cefdinir 300 mg BID x4 days on 09/09 to complete total 7-day abx course * Sputum culture ordered, but uncollected at this time. .? * Legionella and pneumococcal urine antigen negative. mycoplasma antibody titer negative.? * Procalcitonin 0.9 suggesting bacterial infection. (4) New onset atrial fibrillation: Code(s): I48.91 - Unspecified atrial fibrillation Status: Acute Assessment and Plan: Patient found to have AFib in the ED, rate controlled * Patient is asymptomatic and has no known history of AFib. * TSH within normal limits * echocardiogram - with enlarged RA/RV and mildly reduced RV systolic function, moderate pulmonary hypertension * Treated with lovenox 1 mg/kg per renal function on admission. * Discussed with the patient and daughter regarding anticoagulation risks and benefits. * [id number] score 4 high risk stroke; HAS-BLED score 1 low risk major bleeding * Monitored telemetry and remained in afib rate controlled. * Transitioned to Eliquis 5 mg BID on discharge. Family and patient counseled on risk/benefits of anticoagulation, including risk of major bleeding, possible stroke if not anticoagulated, etc. (5) Transaminitis: Code(s): R74.01 - Elevation of levels of liver transaminase levels Status: Acute Assessment and Plan: Abnormal finding on labs * Hepatitis panel negative * Right upper quadrant ultrasound with normal liver * Patient is on Depakote which could be contributing to LFT elevation * Elevated LFTs likely secondary to acute vial disease. * Trended LFTs and were declining at discharge. (6) Hypothyroidism: Qualifiers: Hypothyroidism type: acquired [place]
--- NOTE | 2022-09-09 13:20 | PM.DS ---
DS: Admitting Diagnosis Discharge Date 09/09/2022 1320 Admitting Diagnosis Influenza A Pulmonary infiltrates Transaminitis New onset atrial fibrillation Hypothyroidism Bipolar disorder, chronic Benign prostatic hyperplasia, chronic Obstructive sleep apnea, chronic Generalized weakness DS: Discharge Diagnosis Discharge Diagnosis (1) Influenza A: Code(s): J10.1 - Influenza due to other identified influenza virus with other respiratory manifestations Status: Acute Assessment and Plan: Patient presents to the ED on 09/06/22 due to increased weakness. Patient found to be influenza A positive in the ED. supportive care given with fluids and PRN acetaminophen Treated with Tamiflu, renally dosed, x5 days started 09/06/22 and to be continued on discharge until all days completed Fall precautions Patient not requiring any oxygen supplementation. O2 saturation stable on room air. (2) Generalized weakness: Code(s): R53.1 - Weakness Status: Acute Assessment and Plan: Presents to the ED with generalized weakness. Secondary to influenza. Continue fall precautions. PT/OT consulted and family requested SNF rehab. TSH within normal limits 09/07 CRP 18.7 on admission, repeat CRP 15.3 on 09/08 Urine negative for wbc's, leukocyte Estrace, and nitrates B12 and folate within normal limits Vitamin-D within normal limits. (3) Pneumonia: Code(s): J18.9 - Pneumonia, unspecified organism Status: Acute Assessment and Plan: Chest x-ray revealed pulmonary opacities that may reflect edema or pneumonia. Patient reports sputum color and consistency changes. Treated with empiric azithromycin and ceftriaxone, started 09/06-09/09. He received 3 doses azithromycin 500 mg daily, 3 doses Rocephin 1 gram IV and then transitioned to oral cefdinir 300 mg BID x4 days on 09/09 to complete total 7-day abx course Sputum culture ordered, but uncollected at this time. .? Legionella and pneumococcal urine antigen negative. mycoplasma antibody titer negative.? Procalcitonin 0.9 suggesting bacterial infection. (4) New onset atrial fibrillation: Code(s): I48.91 - Unspecified atrial fibrillation Status: Acute Assessment and Plan: Patient found to have AFib in the ED, rate controlled Patient is asymptomatic and has no known history of AFib. TSH within normal limits echocardiogram - with enlarged RA/RV and mildly reduced RV systolic function, moderate pulmonary hypertension Treated with lovenox 1 mg/kg per renal function on admission. Discussed with the patient and daughter regarding anticoagulation risks and benefits. [id number] score 4 high risk stroke; HAS-BLED score 1 low risk major bleeding Monitored telemetry and remained in afib rate controlled. Transitioned to Eliquis 5 mg BID on discharge. Family and patient counseled on risk/benefits of anticoagulation, including risk of major bleeding, possible stroke if not anticoagulated, etc. (5) Transaminitis: Code(s): R74.01 - Elevation of levels of liver transaminase levels Status: Acute Assessment and Plan: Abnormal finding on labs Hepatitis panel negative Right upper quadrant ultrasound with normal liver Patient is on Depakote which could be contributing to LFT elevation Elevated LFTs likely secondary to acute vial disease. Trended LFTs and were declining at discharge. (6) Hypothyroidism: Qualifiers: Hypothyroidism type: acquired Qualified Code(s): E03.9 - Hypothyroidism, unspecified Code(s): E03.9 - Hypothyroidism, unspecified Status: Chronic Assessment and Plan: Chronic TSH within normal limits continue levothyroxine at home dose (7) Bipolar disorder: Qualifiers: Active/Remission status: remission status unspecified Qualified Code(s): F31.9 - Bipolar disorder, unspecified Code(s): F31.9 - Bipolar disorder, unspecif
[2022-09-09 15:41] LABS: EDCOVIDSCREEN Negative (Negative)
[2022-09-10 20:48] LABS: Mycoplasma IgM Antibody Titer 54 U/mL (<770)
== END 2022-09-09 16:00 ==
LOC: ANHED 16:45 → ANH2MED 23:54
PROVIDERS: Internal Medicine Critical Care Medicine; Nurse Practitioner Family; Physician Assistant; Admitting Provider Chiropractor; Emergency Provider Emergency Medicine; PCP Internal Medicine; Visit Provider Family Medicine
DX: J10.1 Influenza due to other identified influenza virus with other respiratory manifestations (principal); R53.1 Weakness; J18.9 Pneumonia, unspecified organism; I48.91 Unspecified atrial fibrillation; R74.01 Elevation of levels of liver transaminase levels; E03.9 Hypothyroidism, unspecified; F31.9 Bipolar disorder, unspecified; N40.0 Benign prostatic hyperplasia without lower urinary tract symptoms; G47.33 Obstructive sleep apnea (adult) (pediatric); R91.8 Other nonspecific abnormal finding of lung field; I27.20 Pulmonary hypertension, unspecified; Z90.49 Acquired absence of other specified parts of digestive tract; I07.1 Rheumatic tricuspid insufficiency; R60.0 Localized edema; R94.31 Abnormal electrocardiogram [ECG] [EKG]; I11.0 Hypertensive heart disease with heart failure; I50.810 Right heart failure, unspecified; Z20.822 Contact with and (suspected) exposure to COVID-19; Z87.891 Personal history of nicotine dependence; Z79.899 Other long term (current) drug therapy
CPT/HCPCS: 36415; 51701; 71046; 76705; 80053; 80074; 81001; 82306; 82607; 82746; 83735; 84145; 84443; 85025; 85027; 86140; 86738; 87040; 87426; 87636; 93005; 93970; 96365; 96366; 96367; 96372; 96375; 97110; 97162; 97165; 97530; 99285; A9270; C8929; C9803; G0378; J0456; J0696; J1650; J1940; Q9957

== ENCOUNTER 2022-09-21 10:46 | Outpatient (CLI) | payer OTHER, SELFPAY ==
[2022-09-21 20:15] LABS: Kit Draw Collected
== END 2022-09-21 10:47 | disposition home or self-care (01) ==
LOC: ANHGOSHLAB 10:48
PROVIDERS: PCP Internal Medicine; Visit Provider Clinical Nurse Specialist
DX: D64.9 Anemia, unspecified (principal); E03.9 Hypothyroidism, unspecified; E55.9 Vitamin D deficiency, unspecified; I48.91 Unspecified atrial fibrillation; J10.1 Influenza due to other identified influenza virus with other respiratory manifestations; R74.01 Elevation of levels of liver transaminase levels
CPT/HCPCS: 36415

== ENCOUNTER 2022-09-27 09:58 | Outpatient (CLI) | payer OTHER, SELFPAY ==
[2022-09-27 19:59] LABS: Cholesterol 137 mg/dL (0-200); HDL Direct 46 mg/dL; Triglycerides 69 mg/dL (<150)
[2022-09-27 20:05] LABS: Alanine Aminotransferase 20 U/L (6-50); Albumin Level 3.6 g/dL (3.5-5.1); Alkaline Phosphatase 66 U/L (38-126); Anion Gap 4 mmol/L (8-16); Aspartate Amino Transferase 42 U/L (17-59); Bilirubin,Total 0.7 mg/dL (0.2-1.3); Blood Urea Nitrogen 21 mg/dL (9-20); Calcium 8.6 mg/dL (8.4-10.2); Carbon Dioxide 29 mmol/L (22-30); Chloride 108 mmol/L (98-107); Estimated Glomerular Filt Rate > 60; Glucose 85 mg/dL (65-110); Potassium 4.5 mmol/L (3.4-5.0); Sodium 141 mmol/L (137-145)
[2022-09-27 20:09] LABS: LDL Cholesterol Direct 65 mg/dL
[2022-09-27 20:14] LABS: Basophils Percent Auto 0.2 % (0.2-1.2); Eosinophils Percent Auto 0.2 % (0-4.4); Hematocrit 37.5 % (42.0-52.0); Hemoglobin 12.3 g/dL (14.0-18.0); Immature Granulocyte Absolute 0.03 K/mm3 (0.00-0.031); Immature Granulocyte Percent A 0.6 % (0-0.5); Immature Reticulocyte Fraction 11.1 % (3.0-15.9); Lymphocytes Absolute Auto 2.54 K/mm3 (0.9-3.2); Lymphocytes Percent Auto 49.5 % (18.3-44.2); Mean Corpuscular HGB Conc 32.8 g/dl (32-36); Mean Corpuscular Hemoglobin 34.2 pg (26-34); Mean Corpuscular Volume 104.2 fl (80-100); Mean Platelet Volume 10.8 fl (7.4-10.4); Monocytes Absolute Auto 0.4 K/mm3 (0.1-0.6); Monocytes Percent Auto 8.2 % (2.6-8.5); Neutrophils Absolute Auto 2.1 K/mm3 (1.3-6.7); Neutrophils Percent Auto 41.3 % (45.5-73.1); Platelet Count Result 224 k/mm3 (150-375); Red Cell Distribution Width 14.5 % (11.5-14.5); Reticulocyte Hemoglobin Conten 39.5 pg (28.2-35.7); Reticulocyte Percent 2.31 % (0.7-4.3); Reticulocytes Absolute 0.08 B/L (32.2-175.7); White Blood Count 5.1 K/mm3 (4.5-10.0)
[2022-09-27 20:43] LABS: Iron 153 ug/dL (49-181)
[2022-09-27 21:42] LABS: Valproic Acid 55.5 ug/mL (50-120)
[2022-09-27 21:57] LABS: Percent Iron Saturation 46 % (20-50)
[2022-09-28 13:19] LABS: Folic Acid > 20.0 ng/mL (2.76->20)
== END 2022-09-27 09:59 | disposition home or self-care (01) ==
LOC: ANHGOSHLAB 10:00
PROVIDERS: Clinical Nurse Specialist; Nurse Practitioner Family; PCP Internal Medicine; Visit Provider Internal Medicine
DX: R74.01 Elevation of levels of liver transaminase levels (principal); D64.9 Anemia, unspecified; I48.91 Unspecified atrial fibrillation; F31.9 Bipolar disorder, unspecified
CPT/HCPCS: 36415; 80053; 80061; 80164; 82607; 82728; 82746; 83540; 83550; 85025; 85046

== ENCOUNTER 2022-11-03 08:31 | Outpatient (CLI) | payer OTHER, SELFPAY ==
[2022-11-03 19:05] LABS: Basophils Percent Auto 0.2 % (0.2-1.2); Eosinophils Percent Auto 0.4 % (0-4.4); Hematocrit 40.8 % (42.0-52.0); Hemoglobin 13.2 g/dL (14.0-18.0); Immature Granulocyte Absolute 0.01 K/mm3 (0.00-0.031); Immature Granulocyte Percent A 0.2 % (0-0.5); Lymphocytes Absolute Auto 2.23 K/mm3 (0.9-3.2); Lymphocytes Percent Auto 42.6 % (18.3-44.2); Mean Corpuscular HGB Conc 32.4 g/dl (32-36); Mean Corpuscular Hemoglobin 34.5 pg (26-34); Mean Corpuscular Volume 106.5 fl (80-100); Mean Platelet Volume 10.8 fl (7.4-10.4); Monocytes Absolute Auto 0.5 K/mm3 (0.1-0.6); Monocytes Percent Auto 9.8 % (2.6-8.5); Neutrophils Absolute Auto 2.5 K/mm3 (1.3-6.7); Neutrophils Percent Auto 46.8 % (45.5-73.1); Platelet Count Result 195 k/mm3 (150-375); Red Blood Count 3.83 M/mm3 (4.6-6.20); Red Cell Distribution Width 13.9 % (11.5-14.5); White Blood Count 5.2 K/mm3 (4.5-10.0)
[2022-11-03 20:14] LABS: Folic Acid > 20.0 ng/mL (2.76->20)
== END 2022-11-03 08:32 | disposition home or self-care (01) ==
LOC: ANHGOSHLAB 08:32
PROVIDERS: Clinical Nurse Specialist; PCP Internal Medicine; Visit Provider Internal Medicine
DX: D64.9 Anemia, unspecified (principal)
CPT/HCPCS: 36415; 82607; 82746; 85025

== ENCOUNTER 2023-02-04 08:17 | Outpatient (CLI) | payer OTHER, SELFPAY ==
[2023-02-04 11:36] LABS: Basophils Percent Auto 0.2 % (0.2-1.2); Eosinophils Percent Auto 0.3 % (0-4.4); Hematocrit 40.7 % (42.0-52.0); Hemoglobin 13.5 g/dL (14.0-18.0); Immature Granulocyte Absolute 0.02 K/mm3 (0.00-0.031); Immature Granulocyte Percent A 0.3 % (0-0.5); Lymphocytes Absolute Auto 2.34 K/mm3 (0.9-3.2); Lymphocytes Percent Auto 40.5 % (18.3-44.2); Mean Corpuscular HGB Conc 33.2 g/dl (32-36); Mean Corpuscular Hemoglobin 33.9 pg (26-34); Mean Corpuscular Volume 102.3 fl (80-100); Mean Platelet Volume 10.4 fl (7.4-10.4); Monocytes Absolute Auto 0.5 K/mm3 (0.1-0.6); Monocytes Percent Auto 8.3 % (2.6-8.5); Neutrophils Absolute Auto 2.9 K/mm3 (1.3-6.7); Neutrophils Percent Auto 50.4 % (45.5-73.1); Platelet Count Result 217 k/mm3 (150-375); Red Blood Count 3.98 M/mm3 (4.6-6.20); Red Cell Distribution Width 14.1 % (11.5-14.5); White Blood Count 5.8 K/mm3 (4.5-10.0)
[2023-02-04 11:54] LABS: Cholesterol 137 mg/dL (0-200); HDL Direct 45 mg/dL; Triglycerides 50 mg/dL (<150)
[2023-02-04 12:00] LABS: Valproic Acid 60.8 ug/mL (50-120)
[2023-02-04 12:05] LABS: LDL Cholesterol Direct 77 mg/dL
== END 2023-02-04 08:18 | disposition home or self-care (01) ==
LOC: ANHGOSHLAB 08:22
PROVIDERS: PCP Internal Medicine; Referring Provider Nurse Practitioner Psychiatric/Mental Health; Visit Provider Internal Medicine
DX: D64.9 Anemia, unspecified (principal); E03.9 Hypothyroidism, unspecified; N40.0 Benign prostatic hyperplasia without lower urinary tract symptoms; Z79.899 Other long term (current) drug therapy; I10 Essential (primary) hypertension; M19.90 Unspecified osteoarthritis, unspecified site; F41.1 Generalized anxiety disorder; F31.31 Bipolar disorder, current episode depressed, mild
CPT/HCPCS: 36415; 80061; 80164; 82728; 84443; 85025

== ENCOUNTER 2023-04-19 10:35 | Outpatient (CLI) | payer OTHER, SELFPAY ==
[2023-04-19 14:05] LABS: Hematocrit 41.8 % (42.0-52.0); Hemoglobin 13.5 g/dL (14.0-18.0); Mean Corpuscular HGB Conc 32.3 g/dl (32-36); Mean Corpuscular Hemoglobin 34.3 pg (26-34); Mean Corpuscular Volume 106.1 fl (80-100); Mean Platelet Volume 10.7 fl (7.4-10.4); Platelet Count Result 205 k/mm3 (150-375); Red Blood Count 3.94 M/mm3 (4.6-6.20); Red Cell Distribution Width 13.8 % (11.5-14.5); White Blood Count 6.4 K/mm3 (4.5-10.0)
[2023-04-19 14:18] LABS: Alanine Aminotransferase 21 U/L (6-50); Albumin Level 3.8 g/dL (3.5-5.1); Alkaline Phosphatase 67 U/L (38-126); Anion Gap 2 mmol/L (8-16); Aspartate Amino Transferase 58 U/L (17-59); Bilirubin,Total 0.7 mg/dL (0.2-1.3); Blood Urea Nitrogen 28 mg/dL (9-20); Calcium 8.8 mg/dL (8.4-10.2); Carbon Dioxide 29 mmol/L (22-30); Chloride 106 mmol/L (98-107); Estimated Glomerular Filt Rate > 60; Glucose 84 mg/dL (65-110); Potassium 4.6 mmol/L (3.4-5.0); Sodium 137 mmol/L (137-145)
== END 2023-04-19 10:36 | disposition home or self-care (01) ==
PROVIDERS: PCP Internal Medicine; Visit Provider Internal Medicine
DX: D64.9 Anemia, unspecified (principal); I48.91 Unspecified atrial fibrillation; R74.01 Elevation of levels of liver transaminase levels
CPT/HCPCS: 36415; 80053; 85027

== ENCOUNTER 2023-10-31 12:28 | Outpatient (CLI) | payer OTHER, SELFPAY ==
[2023-10-31 18:34] LABS: Basophils Percent Auto 0.2 % (0.2-1.2); Eosinophils Percent Auto 0.3 % (0-4.4); Hematocrit 42.2 % (42.0-52.0); Hemoglobin 13.7 g/dL (14.0-18.0); Immature Granulocyte Absolute 0.01 K/mm3 (0.00-0.031); Immature Granulocyte Percent A 0.2 % (0-0.5); Lymphocytes Absolute Auto 2.53 K/mm3 (0.9-3.2); Lymphocytes Percent Auto 40.8 % (18.3-44.2); Mean Corpuscular HGB Conc 32.5 g/dl (32-36); Mean Corpuscular Hemoglobin 34.1 pg (26-34); Mean Platelet Volume 10.7 fl (7.4-10.4); Monocytes Absolute Auto 0.5 K/mm3 (0.1-0.6); Monocytes Percent Auto 8.4 % (2.6-8.5); Neutrophils Absolute Auto 3.1 K/mm3 (1.3-6.7); Neutrophils Percent Auto 50.1 % (45.5-73.1); Platelet Count Result 216 k/mm3 (150-375); Red Blood Count 4.02 M/mm3 (4.6-6.20); Red Cell Distribution Width 13.7 % (11.5-14.5); White Blood Count 6.2 K/mm3 (4.5-10.0)
[2023-10-31 19:32] LABS: Alanine Aminotransferase 21 U/L (6-50); Albumin Level 4.1 g/dL (3.5-5.1); Alkaline Phosphatase 81 U/L (38-126); Anion Gap 5 mmol/L (8-16); Aspartate Amino Transferase 35 U/L (17-59); Bilirubin,Total 0.6 mg/dL (0.2-1.3); Blood Urea Nitrogen 30 mg/dL (9-20); Calcium 9.4 mg/dL (8.4-10.2); Carbon Dioxide 27 mmol/L (22-30); Chloride 107 mmol/L (98-107); Estimated Glomerular Filt Rate > 60; Glucose 97 mg/dL (65-110); Potassium 4.3 mmol/L (3.4-5.0); Sodium 139 mmol/L (137-145)
== END 2023-10-31 12:29 | disposition home or self-care (01) ==
LOC: ANHGOSHLAB 12:30
PROVIDERS: PCP Internal Medicine; Visit Provider Clinical Nurse Specialist
DX: I48.91 Unspecified atrial fibrillation (principal); F31.9 Bipolar disorder, unspecified
CPT/HCPCS: 36415; 80053; 85025

== ENCOUNTER 2024-01-24 08:17 | Outpatient (CLI) | payer OTHER, SELFPAY ==
[2024-01-24 18:39] LABS: Basophils Percent Auto 0.2 % (0.2-1.2); Eosinophils Percent Auto 0.7 % (0-4.4); Hematocrit 38.3 % (42.0-52.0); Hemoglobin 12.7 g/dL (14.0-18.0); Immature Granulocyte Absolute 0.01 K/mm3 (0.00-0.031); Immature Granulocyte Percent A 0.2 % (0-0.5); Lymphocytes Absolute Auto 2.46 K/mm3 (0.9-3.2); Lymphocytes Percent Auto 43.9 % (18.3-44.2); Mean Corpuscular HGB Conc 33.2 g/dl (32-36); Mean Corpuscular Hemoglobin 34.3 pg (26-34); Mean Corpuscular Volume 103.5 fl (80-100); Mean Platelet Volume 10.6 fl (7.4-10.4); Monocytes Absolute Auto 0.5 K/mm3 (0.1-0.6); Monocytes Percent Auto 8.7 % (2.6-8.5); Neutrophils Absolute Auto 2.6 K/mm3 (1.3-6.7); Neutrophils Percent Auto 46.3 % (45.5-73.1); Platelet Count Result 198 k/mm3 (150-375); Red Cell Distribution Width 14.2 % (11.5-14.5); White Blood Count 5.6 K/mm3 (4.5-10.0)
[2024-01-24 21:21] LABS: Alanine Aminotransferase 18 U/L (6-50); Alkaline Phosphatase 68 U/L (38-126); Anion Gap 8 mmol/L (4-12); Aspartate Amino Transferase 31 U/L (17-59); Bilirubin,Total 0.6 mg/dL (0.2-1.3); Blood Urea Nitrogen 27 mg/dL (9-20); Carbon Dioxide 24 mmol/L (22-30); Chloride 109 mmol/L (98-107); Estimated Glomerular Filt Rate > 60; Glucose 91 mg/dL (65-110); Potassium 4.2 mmol/L (3.4-5.0); Sodium 141 mmol/L (137-145)
== END 2024-01-24 08:18 | disposition home or self-care (01) ==
PROVIDERS: PCP Internal Medicine; Visit Provider Nurse Practitioner
DX: F31.9 Bipolar disorder, unspecified (principal); D64.9 Anemia, unspecified; I48.91 Unspecified atrial fibrillation
CPT/HCPCS: 36415; 80053; 80164; 84443; 85025

== ENCOUNTER 2024-02-15 09:30 | Outpatient (RCR) | payer OTHER, SELFPAY ==
--- NOTE | 2024-02-07 10:50 | OPREHPOC ---
Outpatient Therapy Plan of Care This is a Multidisciplinary Plan of Care that may contain components documented by all disciplines (PT, OT, and ST.) PT Problem 1 PT Problem #1 Knowledge Deficit PT Goal 1 Goal O'Brien with HEP Target Visit 4 PT Problem 2 PT Problem #2 Impaired Range of Motion PT Goal 1 Goal Achieve 150 degrees of left shoulder flexion ROM for active reaching imprrovement Target Visit 8 PT Goal 2 Goal Improve L shoulder external rotation ROM to 80+ degrees to improve self care and active reach of shoulder capsule. Target Visit 8 PT Problem 3 PT Problem #3 Impaired Strength PT Goal 1 Goal Improve L shoulder flexion/abduction strength to 4 +/5 to improve shoulder stability with lifiting Target Visit 8 PT Goal 2 Goal Report no pain greater than 1/10 with self care in last week Target Visit 8
--- NOTE | 2024-02-07 10:50 | PTOPEVAL1 ---
Assessment and note entered by Sylvain Beckford, PT Evaluation Information Assessment Status Evaluation Diagnosis Weakness, Left Shoulder Pain Onset November 2023 Subjective Information Patient reports that he was taking Eliquis and overtime he noted increased pain in his left shoulder. Feels that he has a knot in his left shoulder. Feels that he is seeing some improvement in the shoulder symptoms but he was having severe pain in the left shoulder to the point that he could not sleep. He has been using heating pad for pain relief and improved mobility. He is very active with yard work and around his house and feels some of that may have caused his pain. Feels that after he started taking medication symptoms were magnified. Reported Pain Level Pain Score 0: Self Report Assessment PT Clinical Summary Patient presents with signs and symptoms consistent with shoulder OA and tendonitis. Patient will benefit from skilled therapy to improve postural stability of shoulder girdle and gross left shoulder motion. Plan of Care Interventions Hot Pack/Cold Pack,Manual Therapy,Neuro Re- education,Therapeutic Activities,Therapeutic Exercise PT Services Indicated Yes Treatment Frequency and 2x/week for 8 visits Duration These treatments will address the objective and functional deficits as defined above. The patient will be advanced safely and appropriately in order for the patient to progress towards his/her prior level of function. Additional exercises will be introduced and as well as a comprehensive home exercise program upon discharge, if needed, ?to ensure carryover of functional gains achieved in the clinic. This treatment plan has been reviewed and agreement upon by the patient.
--- NOTE | 2024-05-07 09:49 | PTOPDC ---
Assessment and note entered by Kelby Mirza, PT, DPT Evaluation Information Assessment Status Discharge - Pt Not Present Diagnosis Weakness, Left Shoulder Pain Onset November 2023 Subjective Information Called and spoke with pt. He states his shoulder is doing well and he does not need any additional therapy at this time. Assessment PT Clinical Summary Pt will be discharged per his request.
== END 2024-05-07 10:13 | disposition home or self-care (01) ==
LOC: ANHGOSHPT 09:30
PROVIDERS: PCP Internal Medicine; Visit Provider Nurse Practitioner
DX: R53.1 Weakness (principal); M25.512 Pain in left shoulder
CPT/HCPCS: 97110; 97140; 97161; 97530

== ENCOUNTER 2024-03-21 09:15 | Outpatient (CLI) | payer OTHER, SELFPAY ==
[2024-03-21 12:50] LABS: Basophils Percent Auto 0.1 % (0.2-1.2); Eosinophils Percent Auto 0.2 % (0-4.4); Hematocrit 39.8 % (42.0-52.0); Hemoglobin 12.9 g/dL (14.0-18.0); Immature Granulocyte Absolute 0.02 K/mm3 (0.00-0.031); Immature Granulocyte Percent A 0.2 % (0-0.5); Lymphocytes Absolute Auto 2.44 K/mm3 (0.9-3.2); Lymphocytes Percent Auto 30.2 % (18.3-44.2); Mean Corpuscular HGB Conc 32.4 g/dl (32-36); Mean Corpuscular Hemoglobin 34.4 pg (26-34); Mean Corpuscular Volume 106.1 fl (80-100); Mean Platelet Volume 10.7 fl (7.4-10.4); Monocytes Absolute Auto 0.8 K/mm3 (0.1-0.6); Monocytes Percent Auto 9.9 % (2.6-8.5); Neutrophils Absolute Auto 4.8 K/mm3 (1.3-6.7); Neutrophils Percent Auto 59.4 % (45.5-73.1); Platelet Count Result 213 k/mm3 (150-375); Red Blood Count 3.75 M/mm3 (4.6-6.20); Red Cell Distribution Width 14.3 % (11.5-14.5); White Blood Count 8.1 K/mm3 (4.5-10.0)
[2024-03-21 13:27] LABS: Macrocytosis 1+ (NORMAL); Platelet Estimate Adequate (Adequate); Schistocytes None Seen
[2024-03-21 13:39] LABS: Iron 80 ug/dL (49-181)
[2024-03-21 13:51] LABS: Percent Iron Saturation 24 % (20-50)
[2024-03-21 13:58] LABS: Free T4 Free Thyroxine 1.22 ng/mL (0.78-2.19)
[2024-03-21 14:30] LABS: Vitamin B12 > 1000.0 pg/mL (239-931)
== END 2024-03-21 09:16 | disposition home or self-care (01) ==
PROVIDERS: PCP Internal Medicine; Visit Provider Clinical Nurse Specialist
DX: R74.8 Abnormal levels of other serum enzymes (principal); I48.11 Longstanding persistent atrial fibrillation; F31.9 Bipolar disorder, unspecified; E03.9 Hypothyroidism, unspecified; D64.9 Anemia, unspecified
CPT/HCPCS: 36415; 82607; 82728; 83540; 83550; 84439; 84443; 85025

== ENCOUNTER 2024-10-05 10:14 | Emergency (ER) | payer OTHER, SELFPAY ==
[2024-10-05 10:30] VITALS: BP 156/85; PULSE 78; RESP 16; TEMP 36.7; O2SAT 98
[2024-10-05 10:51] LABS: EDUAAPPEAR Cloudy; EDUABILI Negative (Negative); EDUABLOOD 2+ (Negative); EDUACOLOR1 Yellow; EDUAGLUCOSE Negative (Negative); EDUAKETONE Negative (Negative); EDUALEUKO 3+ (Negative); EDUANITRATE Negative (Negative); EDUAPH 5.5; EDUAPROTEIN Negative (Negative); EDUAUROBILI 0.2
--- NOTE | 2024-10-05 10:51 | ED_ITS ---
HPI - Male Genitourinary General Chief complaint: Urogenital-Male Stated complaint: UTI Symptoms Time Seen by Provider: 10/05/24 10:43 Source: patient and RN notes reviewed Mode of arrival: ambulatory Limitations: no limitations History of Present Illness HPI Narrative: Patient presents today complaining of urinary frequency since yesterday. He was seen approximately 3 weeks ago by his PCP for hematuria but reports this has since resolved. He is on Eliquis for AFib. States he tends to get UTI symptoms after eating products from [place] and did eat and onion from [place] last night. Denies fever, abdominal pain, back pain Related Data Home Medications ?Medication ?Instructions ?Recorded ?Confirmed ?Last Taken ?Type ascorbic acid (vitamin C) 500 mg 500 mg PO DAILY 11/27/19 09/28/24 Unknown History tablet,extended release flaxseed oil 1,000 mg capsule 1,000 mg PO DAILY 11/27/19 09/28/24 Unknown History zinc 50 mg tablet (Chelated Zinc) 50 mg PO DAILY 11/27/19 09/28/24 Unknown History magnesium oxide mg PO DAILY 09/25/22 09/28/24 Unknown History quercetin 500 mg capsule mg PO 09/25/22 09/28/24 Unknown History saw palmetto 450 mg capsule 450 mg PO DAILY 09/25/22 09/28/24 Unknown History selenium 200 mcg tablet 200 mcg PO DAILY 09/25/22 09/28/24 Unknown History cholecalciferol (vitamin D3) 125 125 mcg PO DAILY 01/26/24 09/28/24 Unknown History mcg (5,000 unit) capsule turmeric 400 mg capsule mg PO 01/26/24 09/28/24 Unknown History mecobalamin (vitamin B12) 1 tablet PO 03/23/24 09/28/24 Unknown History Allergies Allergy/AdvReac Type Severity Reaction Status Date / Time No Known Allergies Allergy Mild Verified 10/05/24 10:21 Review of Systems Review of Systems: CONSTITUTIONAL: Denies body aches, fever, chills, or sweats. EYES: Denies visual changes, redness, or discharge. ENT: Denies rhinorrhea, congestion, sore throat, or otalgia. CARDIOVASCULAR: Denies chest pain, palpitations, or edema. RESPIRATORY: Denies cough or dyspnea. GASTROINTESTINAL: Denies abdominal pain, nausea, vomiting, or diarrhea. GENITOURINARY: + urinary frequency SKIN: Denies rash, itching, or wounds. MUSCULOSKELETAL: Denies back pain, joint pain, or myalgia. NEUROLOGIC: Denies headache, numbness, tingling, or weakness. PSYCH: Denies depression or anxiety. [facility] Past Medical History Medical History Pneumonia New onset atrial fibrillation Transaminitis Pulmonary infiltrates Obstructive sleep apnea Depression Arthritis Hypothyroidism Benign prostatic hyperplasia Influenza A Seborrheic keratoses Impacted cerumen of right ear Cataract of left eye Primary osteoarthritis of both knees Acquired hypothyroidism Bipolar disorder Surgical History Surgical History History of cataract extraction with lens replacement History of cholecystectomy Status post transposition of nerve Family History Family History Sibling Patient's brother is in good health Mother Patient's mother is Father Patient's father is Social History Social History Social History: Caffeine-coffee occasionally Surrogate medical decision maker: Bere Ferraro, daughter. Code status: Full code. Smoking packs per day: 0.5 Smoking cigarettes per day: 10.0 Years smoked: 1.2 Smoking pack-years: 0.60 Smoking status: Never smoker Second hand tobacco smoke exposure: Yes Smoking end date: 01/26/1967 Alcohol intake: never Substance use: never Substance use type: does not use Do You Feel Safe in your Home?: Yes Lack of Transportation: No Lack of Food: Never True Current Housing: I Have Housing Concerned About Future Housing: No Difficulty Paying Gas/Electric Bills: No Difficulty Paying for Meds: No Currently Unemployed: No Education: High School Diploma/GED Difficulty w/ Childcare or Family Care: No Additional living arrangements comments: The patient lives in his own home in [place]. Additional occupation/education comments: Retired. Spiritual care concerns: No Comments At time of signature, I have reviewed and agree with nursing past medical, surgical, social and family history unless otherwise noted. Please see nursing chart for further information. There is no relevant family history pertinent to the presenting complaint Exam Narrative: GENERAL: Well-appearing, well-nourished, and in no acute distress. HEAD: Normocephalic, atraumatic. EYES: EOMI. No redness or drainage. Conjunctivae normal. ENT: Mucous membranes pink and moist. NECK: Normal AROM. CHEST: No respiratory distress. Clear to auscultation. HEART: Irregularly irregular. No murmur appreciated. Normal peripheral pulses. ABDOMEN: Soft, nondistended, normal active bowel sounds.+ mild suprapubic tend erness. EXTREMITIES: Normal range of motion. No edema. SKIN: Warm, dry, no rash. Capillary refill normal. Normal skin turgor. NEURO: No focal deficits. Alert and oriented x3. Gait steady. PSYCH: Normal affect. No signs of depression or anxiety. Course Course Level of Care: Express Care Visit Vital Signs Vital signs: Vital Signs Temperature 98.1 F 10/05/24 10:30 Pulse Rate 78 10/05/24 10:30 Respiratory Rate 16 10/05/24 10:30 Blood Pressure 156/85 H 10/05/24 10:30 Pulse Oximetry 98 10/05/24 10:30 Temperature 98.1 F 10/05/24 10:30 Pulse Rate 78 10/05/24 10:30 Respiratory Rate 16 10/05/24 10:30 Blood Pressure 156/85 H 10/05/24 10:30 Pulse Oximetry 98 10/05/24 10:30 Reviewed MDM - Male Genitourinary MDM Narrative Medical decision making narrative: Urinalysis is consistent with UTI. Patient will be started on Keflex. Culture pending. Anticipatory guidance given. ED precautions given. Differential Diagnosis Differential diagnosis: Likely urinary tract infection Lab Data Attestation: I reviewed the patient's lab results. Labs: Lab Results 10/05/24 Range/Units 10:27 POC Urine Color Yellow POC Urine Clarity Cloudy POC Urine pH 5.5 POC Ur Specif [place] 1.010 POC Urine Protein Negative (Negative) POC Ur Glucose (UA) Negative (Negative) POC Urine Ketones Negative (Negative) POC Urine Blood 2+ (Negative) POC Urine Nitrite Negative (Negative) POC Urine Bilirubin Negative (Negative) POC Urine Urobilinogen 0.2 POC U Leukocyte Esteras 3+ (Negative) Critical Care Time Critical Care Time Critical Care Time: No Discharge Plan Discharge Clinical Impression: Urinary tract infection Qualifiers: Urinary tract infection type: acute cystitis Hematuria presence: with hematuria Qualified Code(s): N30.01 - Acute cystitis with hematuria Patient Disposition: Home, Self-Care Condition: Stable Instructions: Antibiotic Form, Urinary Tract Infection in Men (ED) Additional Instructions: Your urine shows infection today. Take Keflex as prescribed until gone. Your urine will be sent of for a culture to identify what type of bacteria is causing your infection. If the culture shows that your medication will not get rid of your infection, you will be notified and a new antibiotic will be called in for you. If your symptoms worsen to include fever, sweats, chills, nausea, vomiting, severe abdominal or back pain, please go to the ER for further evaluation. Your blood pressure was elevated above 120/80 today at Urgent Care. This puts you above the threshold for follow up. Please schedule a followup visit with your personal physician as soon as possible, for further evaluation and treatment. Even blood pressure exceeding 120/80 may indicate pre-hypertension. Patient Language: Macedonian Prescriptions: New cephalexin 500 mg capsule 500 mg PO Q6H 7 Days Qty: 28 0RF No Action selenium 200 mcg tablet 200 mcg PO DAILY saw palmetto 450 mg capsule 450 mg PO DAILY Rx Instructions: give with food (meal/snack) quercetin 500 mg capsule PO magnesium oxide 200 mg magnesium tablet,chewable PO DAILY Eliquis 5 mg tablet 5 mg PO Q12HR Qty: 180 1RF mecobalamin (vitamin B12) 1 tablet PO cholecalciferol (vitamin D3) 125 mcg (5,000 unit) capsule 125 mcg PO DAILY turmeric 400 mg capsule PO zinc [Chelated Zinc] 50 mg tablet 50 mg PO DAILY ascorbic acid (vitamin C) 500 mg tablet extended release 500 mg PO DAILY flaxseed oil 1,000 mg capsule 1,000 mg PO DAILY Rx Instructions: administer with a meal divalproex [Depakote] 500 mg tablet,delayed release (DR/EC) 500 mg PO BID Qty: 180 1RF triamcinolone acetonide 0.1 % cream See Rx Instructions .ROUTE .COMPLEX Qty: 30 0RF Dose Instruction: APPLY TOPICALLY TO THE AFFECTED AREA TWICE DAILY Rx Instructions: APPLY TOPICALLY TO THE AFFECTED AREA TWICE DAILY coenzyme Q10 [CoQ-10] 100 mg capsule 100 mg PO DAILY Qty: 90 1RF levothyroxine 100 mcg capsule 100 mcg PO DAILY Qty: 90 3RF Follow-up/Referrals: Shaan Stephen DO [Primary Care Provider] - Time of Disposition: 10:58
== END 2024-10-05 11:00 | disposition home or self-care (01) ==
PROVIDERS: Emergency Provider Nurse Practitioner; PCP Internal Medicine
DX: N30.01 Acute cystitis with hematuria (principal); I48.91 Unspecified atrial fibrillation; Z79.01 Long term (current) use of anticoagulants; G47.33 Obstructive sleep apnea (adult) (pediatric); E03.9 Hypothyroidism, unspecified; F31.9 Bipolar disorder, unspecified
CPT/HCPCS: 81003; 87086; 87181; 99213; G0463

== ENCOUNTER 2025-05-08 23:42 | Emergency (ER) | payer OTHER, SELFPAY ==
--- OUTSIDE RECORDS SUMMARY | 2008-11-05 08:30 | XMS_ITS | Continuity of Care Document ---
Author Organization [facility] [place] [address] [place] [address] [address] [place] [address] Phone Care Team Providers Care Risk Reduction Counselor Name Role Phone Nadja Medina Unavailable Unavailable Procedures Procedure Date Eye Exam Established Pt Advance Directives Directive Yes / No Effective Date File Name No Information Encounters Encounter Description Practice Location Reason(s) For Visit Diagnoses Date Provider Providers Copied on Encounter [facility], [id number] [place] [address] [address], [place], [place], [id number], [place] tel:[phone] [facility] No Information [address] , [address], [place], [address], [place]. tel:[phone] Family History Family Member Type Diagnosis Age At Onset No Information Payers Payer name Insurance type Covered alliance party ID Authoriza tion(s) [place] [id number] [facility] [id number] Social History Type Description Quantity Date Captured Comments Sex Male Smoking Status No Information Chief Complaint And Reason For Visit No Information Reason For Referral Reason For Referral No Information History Of Present Illness Encounter Date Complaint History Of Prese nt Illness No Information Functional Status Date Functional Assessmen t No Information Instructions Date Instruction Additional Infor mation No Information Assessments Type Assessment Date No Information Patient Care Teams Name Effective Dates (start - stop) Status Members No Information
[2025-05-09 00:19] VITALS: BP 102/78; PULSE 65; RESP 12; RESP 15; TEMP 36.4; O2SAT 98; O2SAT 99
--- OUTSIDE RECORDS SUMMARY | 2025-05-09 00:26 | XMS_ITS | Patient Health Record ---
Author Organization [facility] Address [address] [place] [address] Care Team Providers Care Journeyman Mechanic Name Role Phone Shaan Stephen DO Primary Care Provider Michelle Bowles Unavailable [phone] Allergies No Known Allergies Reason For Referral Reason Med Management Diagnosis 1 Generalized anxiety disorder (F41.1) Referring Provider First Name Shaan Referring Provider Last Name Zafar Falk Referring Provider Speciality Internal M edicine Referred Organization [facility] Referred Provider Michelle Anderson Referred Address [address] ,[address],[place], [place],[address], Referral Priority Routine Medications Medication SIG (Take, Route, Frequency, Duration) Notes Start Date End Date Status Depakote 500 MG Tablet Delayed Release 1 tablet Oral Twice a day; Duration: 90 days Active Eliquis 5 MG Tablet Oral 01/23/2024 Active Doxazosin Mesylate 2 MG Tablet Oral 01/23/2024 Active Synthroid 100 MCG Tablet Oral 01/23/2024 Active Doxazosin Mesylate 1 MG Tablet Oral 01/23/2024 Active Social History Sex Assigned At : Social History Observation Description Sex Assigned At Male Social History Additional Details Category Social Info Options Details Migrated Social History Migrated Social History Alcohol Intake: None 08/09/2022,Tobacco Years: Former smoker 08/09/2022 Problems Problem Type SNOMED Code ICD Code Onset Dates Problem Status W/U Status Risk Notes Problem Bipolar affective disorder, currently depressed, mild (774004645) Bipolar disorder, current episode depressed, mild (F31.31) Active confirmed Problem Generalized anxiety disorder (51050201) Generalized anxiety disorder (F41.1) 4 Active confirmed Problem Sexual disorder (986222231) Other sexual disorders (F66) 4 Active confirmed Problem Other retirement (current) drug therapy (Z79.899) 4 Active confirmed Vital Signs Heart Rate 88 /min 07/17/2024 Height-cm 172.72 cm 07/17/2024 Blood pressure diastolic 83 mm Hg 07/17/2024 Weight-kg 107.05 kg 07/17/2024 Height 68.00 in 07/17/2024 Blood pressure systolic 145 mm Hg 07/17/2024 Weight 236 lbs 07/17/2024 BMI 35.88 kg/m2 07/17/2024 Encounters Encounter Location Date Provider Diagnosis [facility] [place] [employer] [place] [id number] [facility] [address] [address] 07/17/2024 Michelle Anderson Bipolar disorder, current episode depressed, mild F31.31 ; Generalized anxiety disorder F41.1 ; Other sexual disorders F66 and Other retirement (current) drug therapy Z79.899 [facility] [place] [employer] [place] [id number] [facility] [address] [address] 05/22/2024 Michelle Anderson [facility] [place] [employer] [place] [id number] [facility] [address] [address] 05/25/2024 Michelle Anderson Assessments Encounter Date Diagnosis (ICD Code) Assessment Notes Treatment Notes Treatment Clinical Notes Section Notes 07/17/2024 Bipolar disorder, current episode depressed, mild (ICD-10 - F31.31) Bipolar Disorder: Care Instructions material was published 1. 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 Anxiety disorder -monitor Medication Management and Follow-Up- Plan:- Schedule follow-up appointments every 2-3 months to monitor the patient's response to the medication regimen.- Reinforce the importance of avoiding recreational drug use due to potential neurotoxicity and interactions with prescribed medications. [facility]- 28 07/17/24 4. Long-term drug therapy 07/17/2024 Generalized anxiety disorder (ICD-10 - F41.1) Generalized Anxiety Disorder: Care Instructions material was published, Learning About Generalized Anxiety Disorder material was published, Learning About Anxiety Disorders material was published 1. 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 Anxiety disorder -monitor Medication Management and Follow-Up- Plan:- Schedule follow-up appointments every 2-3 months to monitor the patient's response to the medication regimen.- Reinforce the importance of avoiding recreational drug use due to potential neurotoxicity and interactions with prescribed medications. [facility]- 07/17/24 4. Long-term drug therapy 07/17/2024 Other sexual disorders (ICD-10 - F66) 1. 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 Anxiety disorder -monitor Medication Management and Follow-Up- Plan:- Schedule follow-up appointments every 2-3 months to monitor the patient's response to the medication regimen.- Reinforce the importance of avoiding recreational drug use due to potential neurotoxicity and interactions with prescribed medications. [facility]- 07/17/24 4. Long-term drug therapy 07/17/2024 Other retirement (current) drug therapy (ICD-10 - Z79.899) Medication Refill: Care Instructions material was published 1. 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 Anxiety disorder -monitor Medication Management and Follow-Up- Plan:- Schedule follow-up appointments every 2-3 months to monitor the patient's response to the medication regimen.- Reinforce the importance of avoiding recreational drug use due to potential neurotoxicity and interactions with prescribed medications. [facility]- 07/17/24 4. Long-term drug therapy Plan Of Treatment No Information Insurance Providers Payer Name Payer Address Payer Phone Subscriber Number Group Number Insured Name Patient Relationship to Insured Coverage Start Date Coverage End Date [employer] Medicare Replacement/ Advantage - [place]mo [address] [place] [phone] [id number] DIANELYS العراقي Self - patient is the insured Medical (General) History Medical History History ICD Code Problems: Anxiety disorder Bipolar disorder in remission Long-term drug therapy Sexual arousal disorder , Surgical History Surgery Date(Month/Year) Removal of gallbladder (19574) 0 Other 09/12/1989 Cataract surgery (99659) 08/12/2019
--- OUTSIDE RECORDS SUMMARY | 2025-05-09 00:26 | XMS_ITS | Clinical Summary ---
Author Organization [facility] Address [facility] [place] [address] Care Team Providers Care Assistant Women'S Basketball Coach Name Role Phone Leo Perla MD Unavailable [phone] Cecille Hollins MD Primary Care Provider [phone] Source Comments [facility],non-owned Affiliates and Associated Physician Practices is amultiple site organization consisting of ambulatory clinics and hospital sitesin [place], [place], [place] and [place]. This disclosure is being madepursuant to the Care Everywhere program and may not contain all information available regarding this patient. Last updated 18.[facility] Allergies No known active allergies Medications * Be aware that medications may not be up to date on this document. Alwaysverify current medications with the patient. divalproex ER 24hr (DEPAKOTE ER) 500 MG tablet Take 500 mg by mouth 2 times daily Active levothyroxine (SYNTHROID) 100 MCG tablet Take 100 mcg by mouth daily before breakfast Active doxazosin (CARDURA) 1 MG tablet Take 1 mg by mouth once daily after breakfast Active Saw Marvin, Serenoa repens, 450 MG Take 1 Cap by mouth once daily Active Other Take 1 Tab by mouth 2 times daily Product called ArthroCure. Active B Complex-Biotin- FA (HM VITAMIN B100 COMPLEX) TABS Take 1 Tab by mouth once daily Active acetaminophen-c odeine (Tylenol #3) 300-30 MG tablet Take 1 (one) tablet by mouth every 4 hours 5 Active Eliquis 5 MG tablet Oral 05/13/202 4 Active hydrocortisone, rectal, (Anusol-HC) 2.5 % cream APPLY RECTALLY TO THE AFFECTED AREA DAILY NEEDED FOR HEMORRHOIDS 5 Active vitamin A 3 MG (30026 UT) capsule Take 1 (one) capsule by mouth once daily Vit. a Active magnesium 30 MG tablet Take 1 (one) tablet by mouth once daily 250 mg Active Other Tumeric forte Active cyanocobalamin (Vitamin B-12) 1000 MCG tablet Take 1 (one) tablet by mouth once daily 2500 mg Active Other Flaxseed Active ascorbic acid (Vitamin C) 250 MG tablet Take 1 (one) tablet by mouth once daily 1000 mg Active linaCLOtide (Linzess) 72 MCG capsule Take 1 (one) capsule by mouth daily before breakfast Take on an empty stomach at least 30 minutes prior to first meal of the day. 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 Overview (12/06/2015): 2015 I[facility] Updt Encounters Date Type Department Care Team Description 03/14/2025 9:10 AM CDT Office Visit [facility] - [address] [address] Sid Garcia MD Constipation, unspecified constipation type (Primary Dx); Liver lesion 03/06/2025 Orders Only [address] [address] Sid Garcia MD Abnormal CT scan, bladder ; Abdominal pain, unspecified abdominal location from Last 3 Months Social History Tobacco Use Types Packs/Day Years Used Date Smoking Tobacco: Former Smokeless Tobacco: Never Comments:ONLY SMOKED FOR 6 M OLNTHS Alcohol Use Standard Drinks/Week Comments No 0 (1 standard drink = 0.6 oz pur e alcohol) Sex and Gender Information Value Date Recorded Sex Assigned at Not on file Legal Sex Male 3:01 PM CDT Gender Identity Not on file Sexual Orientation Not on file Last Filed Vital Signs Vital Sign Reading Time Taken Comments Blood Pressure 152/78 03/14/2025 9:01 AM CDT Pulse 108 06/16/2016 3:59 PM CDT Temperature 36.8 C (98.2 F) 06/16/2016 3:59 PM CDT Respiratory Rate 18 06/16/2016 3:59 PM CDT Oxygen Saturation 97% 06/16/2016 3:59 PM CDT Inhaled Oxygen Concentration - - Weight 102.3 kg (225 lb 9.6 oz) 03/14/2025 8:56 AM CDT Height 172.7 cm (5' 8) 03/14/2025 8:56 AM CDT Body Mass Index 34.3 03/14/2025 8:56 AM CDT Plan of Treatment Health Maintenance Due Date Last Done Comments MEDICARE AWV 12 MONTHS 1935 DTAP/TDAP/TD VACCINES (1 - Tdap) 1954 PNEUMOCOCCAL VACCINE 50+ (1 of 1 - PCV) 1985 ZOSTER VACCINE (1 of 2) 1985 Respiratory Syncytial Virus (RSV) Vaccine Pt: or over 60 yrs (1 - 1-dose 75+ series) 2010 COVID-19 VACCINE ( - 2023-2 5 season) 2024 DEPRESSION SCREENING 09/12/2024 INFLUENZA VACCINE (#1) 2025 HEPATITIS B VACCINE Aged Out No longe r eligible based on patient's age to complete this topic HIB VACCINE Aged Out No longer eligi ble based on patient's age to complete this topic HPV VACCINE Aged Out No longer eligi ble based on patient's age to complete this topic MENINGOCOCCAL (Group B) VACC INE SHARED DECISION-MAKING Aged Out No longer eligibl e based on patient's age to complete this topic MENINGOCOCCAL GROUPS A/C/Y/W VACCINE Aged Out No longer eligible b ased on patient's age to complete this topic Insurance [facility] MEDICARE [facility] Care Address: [place] [id number] [place] [address] Advance Directives * Full Code (Latest Code Status on File) Date Activated Date Inactivated Comments 06/15/2016 3:06 AM 06/16/2016 5:47 PM Care Teams Assistant Women'S Basketball Coach Relationship Specialty [place] [id number] [place] [address] PCP - General Internal Medicine 06/14/16 [place] [id number] [place] [address] Orthopedic Surgery 06/15/13
--- NOTE | 2025-05-09 00:36 | ED.GENADULT ---
HPI - General Adult General Chief complaint: Unspecified Stated complaint: numbness right hand Time Seen by Provider: 05/09/25 00:16 History of Present Illness HPI narrative: Patient is an 89-year-old male who presents to the emergency department this evening complaining of pain to his right hand. Patient states that symptoms initially started with some pain and now states that he feels some numbness to the dorsum of his right hand. Symptoms are only to his hand and does not extend past his wrist. Patient called his doctor today and his doctor prompted him to come to the emergency department for an ultrasound of his right upper extremity to rule out a DVT since the patient stopped his Eliquis 2 days ago in preparation for a procedure he has scheduled tomorrow. Patient is having 1 of his toenails removed tomorrow morning.. Related Data Home Medications ?Medication ?Instructions ?Recorded ?Confirmed ?Last Taken ?Type ascorbic acid (vitamin C) 500 mg 500 mg PO DAILY 11/27/19 04/01/25 Unknown History tablet,extended release flaxseed oil 1,000 mg capsule 1,000 mg PO DAILY 11/27/19 04/01/25 Unknown History zinc 50 mg tablet (Chelated Zinc) 50 mg PO DAILY 11/27/19 04/01/25 Unknown History magnesium oxide mg PO DAILY 09/25/22 04/01/25 Unknown History quercetin 500 mg capsule mg PO 09/25/22 04/01/25 Unknown History saw palmetto 450 mg capsule 450 mg PO DAILY 09/25/22 04/01/25 Unknown History selenium 200 mcg tablet 200 mcg PO DAILY 09/25/22 04/01/25 Unknown History cholecalciferol (vitamin D3) 125 125 mcg PO DAILY 01/26/24 04/01/25 Unknown History mcg (5,000 unit) capsule turmeric 400 mg capsule mg PO 01/26/24 04/01/25 Unknown History mecobalamin (vitamin B12) 1 tablet PO 03/23/24 04/01/25 Unknown History Allergies Allergy/AdvReac Type Severity Reaction Status Date / Time No Known Allergies Allergy Mild Verified 05/08/25 23:43 Review of Systems Review of Systems: All systems are reviewed and are negative unless stated otherwise in the HPI. [facility] Past Medical History Medical History Pneumonia New onset atrial fibrillation Transaminitis Pulmonary infiltrates Obstructive sleep apnea Depression Arthritis Hypothyroidism Benign prostatic hyperplasia Influenza A Seborrheic keratoses Impacted cerumen of right ear Cataract of left eye Primary osteoarthritis of both knees Acquired hypothyroidism Bipolar disorder Surgical History Surgical History History of cataract extraction with lens replacement History of cholecystectomy Status post transposition of nerve Family History Family History Sibling Patient's brother is in good health Mother Patient's mother is Father Patient's father is Social History Social History Social History: Caffeine-coffee occasionally Surrogate medical decision maker: Bere Ferraro, daughter. Code status: Full code. Smoking packs per day: 0.5 Smoking cigarettes per day: 10.0 Years smoked: 1.2 Smoking pack-years: 0.60 Smoking status: Never smoker Second hand tobacco smoke exposure: Yes Smoking end date: 01/26/1967 Alcohol intake: never Substance use: never Substance use type: does not use Do You Feel Safe in your Home?: Yes Lack of Transportation: No Lack of Food: Never True Current Housing: I Have Housing Concerned About Future Housing: No Difficulty Paying Gas/Electric Bills: No Difficulty Paying for Meds: No Currently Unemployed: No Education: High School Diploma/GED Difficulty w/ Childcare or Family Care: No Additional living arrangements comments: The patient lives in his own home in [place]. Additional occupation/education comments: Retired. Spiritual care concerns: No Exam Narrative: General: Alert, awake, afebrile, in no acute distress. HEENT: PERRL, no rhinorrhea, no post nasal drip, oropharynx clear. Neck: Trachea midline, no JVD, no lymphadenopathy. Cardiovascular: Regular rate and rhythm, no murmurs, rubs or gallops, no peripheral edema. Respiratory: Clear to auscultation bilaterally, no tachypnea, no wheezing, no rhonchi, no rubs, no respiratory distress. Abdomen: Soft, nontender, nondistended, no rebound, no guarding, no peritoneal signs. Musculoskeletal: No joint swelling or deformity, normal muscle tone, intact and equal bilateral clinical technologist strength, no swelling. Skin: No rashes or petechia, no signs of infection. Psychiatric: Alert and oriented, normal behavior and judgment for situation. Neurological: Alert and oriented to person, place, and time. Follows all commands. No focal deficits, speech is clear and fluent. Course Vital Signs Vital signs: Vital Signs Temperature 97.6 F 05/09/25 00:19 Pulse Rate 65 05/09/25 00:19 Respiratory Rate 12 05/09/25 00:19 Blood Pressure 102/78 05/09/25 00:19 Pulse Oximetry 98 05/09/25 00:19 Oxygen Delivery Room Air 05/09/25 00:19 Temperature 97.6 F 05/09/25 00:57 Pulse Rate 65 05/09/25 00:57 Respiratory Rate 12 05/09/25 00:57 Blood Pressure 102/78 05/09/25 00:57 Pulse Oximetry 98 05/09/25 00:57 Oxygen Delivery Room Air 05/09/25 00:19 Medical Decision Making MDM Narrative Medical decision making narrative: The patient was evaluated by myself in the emergency department. History is obtained from patient who is an independent historian and physical exam was performed. External medical records were reviewed at this time. Patient was informed that we do not have ultrasound in the hospital overnight we can schedule him for an ultrasound 1st thing in the morning 7:00 a.m. and patient is agreeable with this plan. Differential diagnosis considerations include DVT, nerve compression musculoskeletal strain. Comorbidities impacting this visit include none. I have evaluated and discussed social determinants of health with the patient that could potentially impact subsequent diagnosis and treatment plans. On repeat assessment of the patient, reevaluation revealed that the patient is doing well and is in no acute distress. Patient symptoms have remained stable since he arrived to our emergency department. Repeat vital signs were all reviewed and noted to be stable. Differential diagnosis and treatment plan were discussed with the patient at bedside. Patient agrees with discussion and after shared medical decision making agrees with discharge. All questions were answered to the patient's satisfaction. Patient will follow up with his PCP in 3-5 days. He was scheduled for outpatient right upper extremity ultrasound to rule out a DVT this morning at 7:00 a.m. Patient was provided with strict return precautions and instructed to return to the emergency department if any new or worsening symptoms develop. The patient was discharged in stable condition. Vital Signs Vital Signs: Vital Signs Temperature 97.6 F 05/09/25 00:19 Pulse Rate 65 05/09/25 00:19 Respiratory Rate 12 05/09/25 00:19 Blood Pressure 102/78 05/09/25 00:19 Pulse Oximetry 98 05/09/25 00:19 Oxygen Delivery Room Air 05/09/25 00:19 Temperature 97.6 F 05/09/25 00:57 Pulse Rate 65 05/09/25 00:57 Respiratory Rate 12 05/09/25 00:57 Blood Pressure 102/78 05/09/25 00:57 Pulse Oximetry 98 05/09/25 00:57 Oxygen Delivery Room Air 05/09/25 00:19 Discharge Plan Discharge Clinical Impression: Numbness of right hand Patient Disposition: Home Condition: Stable Instructions: Antibiotic Form, Paresthesia (ED) Additional Instructions: You were scheduled for an outpatient right upper extremity ultrasound 1st thing in the morning at 7:00 a.m.. You need to present to our outpatient imaging center in the hospital tomorrow 7:00 a.m. to have this procedure done. You also instructed to follow-up with your family doctor within the next 3-5 days. Return to the ED if any new or worsening symptoms develop. Patient Language: Maori Prescriptions: No Action selenium 200 mcg tablet 200 mcg PO DAILY saw palmetto 450 mg capsule 450 mg PO DAILY Rx Instructions: give with food (meal/snack) quercetin 500 mg capsule PO magnesium oxide 200 mg magnesium tablet,chewable PO DAILY mecobalamin (vitamin B12) 1 tablet PO cholecalciferol (vitamin D3) 125 mcg (5,000 unit) capsule 125 mcg PO DAILY turmeric 400 mg capsule PO zinc [Chelated Zinc] 50 mg tablet 50 mg PO DAILY ascorbic acid (vitamin C) 500 mg tablet extended release 500 mg PO DAILY flaxseed oil 1,000 mg capsule 1,000 mg PO DAILY Rx Instructions: administer with a meal triamcinolone acetonide 0.1 % cream See Rx Instructions .ROUTE .COMPLEX Qty: 30 0RF Dose Instruction: APPLY TOPICALLY TO THE AFFECTED AREA TWICE DAILY Rx Instructions: APPLY TOPICALLY TO THE AFFECTED AREA TWICE DAILY coenzyme Q10 [CoQ-10] 100 mg capsule 100 mg PO DAILY Qty: 90 1RF hydrocortisone [Proctosol HC] 2.5 % cream with perineal applicator 1 applic RECTAL DAILY PRN (Reason: hemorrhoids) Qty: 30 0RF divalproex [Depakote] 500 mg tablet,delayed release (DR/EC) 500 mg PO BID Qty: 180 1RF levothyroxine [Synthroid] 100 mcg tablet 100 mcg PO DAILY Qty: 90 2RF Eliquis 5 mg tablet 5 mg PO Q12HR Qty: 180 1RF Other Ambulatory Orders: US venous doppler UE RT (Routine) Timeframe: [id number] Location: Determined by Patient Ordered By: Cindi Edward Follow-up/Referrals: Shaan Stephen DO [Primary Care Provider, Internal Medicine] - 3 Days Time of Disposition: 00:37
[2025-05-09 00:57] VITALS: BP 102/78; PULSE 65; RESP 12; TEMP 36.4; O2SAT 98
== END 2025-05-09 00:58 | disposition home or self-care (01) ==
PROVIDERS: Emergency Provider Emergency Medicine; PCP Internal Medicine
DX: R20.0 Anesthesia of skin (principal); I48.91 Unspecified atrial fibrillation; Z79.01 Long term (current) use of anticoagulants; G47.30 Sleep apnea, unspecified; F32.A Depression, unspecified; F41.9 Anxiety disorder, unspecified; M19.90 Unspecified osteoarthritis, unspecified site; E03.9 Hypothyroidism, unspecified
CPT/HCPCS: 99281